=== PATIENT | male | born 1960 | race Caucasian/White ===

== ENCOUNTER → 2018-10-06 | Outpatient (CLI) | payer MEDICAID, MEDICARE ==
[~2018-10-06] MED LIST: RT-ALBUTEROL SULF 2.5 MG/3 ML PRE-MIX VIAL INH ONE
== END ==
LOC: RT 12:39
PROVIDERS: ATTEND Family Medicine
DX: J44.9 Chronic obstructive pulmonary disease, unspecified (principal)
CPT/HCPCS: 94060; 94726; 94729

== ENCOUNTER → 2018-12-03 | Outpatient (CLI) | payer MEDICARE, OTHER ==
--- NOTE | 2018-12-03 13:07 | Diagnostic Imaging Report ---
EXAM: CT CHEST SCREENING WO INDICATION: [id number] smoking history. Quit smoking 2 years ago. COMPARISON: None. FINDINGS: There are a couple calcified granulomas bilaterally. No suspicious pulmonary nodule or mass. No endobronchial lesions. No pleural effusion or pneumothorax. No mediastinal, hilar or axillary lymphadenopathy. Normal heart size. No pericardial effusion. Normal caliber thoracic aorta and main pulmonary arteries. No acute osseous findings. IMPRESSION: No suspicious pulmonary nodule or mass. No acute CT findings in the chest. Recommend continue annual screening with low-dose chest CT in 12 months. Lung rads category: 1. Modifier: None. Please note that the low-dose technique of this chest CT is of non-diagnostic quality. This study is only intended for lung cancer screening of high risk patients. Dictated by: Dictated on workstation # [id number]
== END ==
LOC: RAD 11:24
PROVIDERS: ATTEND Family Medicine
DX: Z12.2 Encounter for screening for malignant neoplasm of respiratory organs (principal); Z87.891 Personal history of nicotine dependence

== ENCOUNTER → 2018-12-20 | Outpatient (CLI) | payer MEDICARE ==
--- NOTE | 2018-12-20 13:56 | Diagnostic Imaging Report ---
PATIENT HISTORY: LEFT KNEE PAIN. TECHNIQUE: Three views of the left knee. COMPARISON: None. FINDINGS: No acute fracture or dislocation is seen in the left knee. Alignment appears normal. Joint spaces are preserved. There is a small left knee joint effusion. IMPRESSION: Small left knee joint effusion with no acute osseous abnormalities seen. Dictated by: Dictated on workstation # [id number]
== END ==
LOC: RAD FS 13:00
PROVIDERS: ATTEND Nurse Practitioner Family
DX: M25.462 Effusion, left knee (principal)
CPT/HCPCS: 73562

== ENCOUNTER → 2019-02-26 | Outpatient (CLI) | payer MEDICARE, OTHER ==
--- NOTE | 2019-02-26 16:21 | Diagnostic Imaging Report ---
PROCEDURE: US left lower extremity venous. TECHNIQUE: Multiple real-time grayscale images were obtained over the left lower extremity in various projections. Additional duplex Doppler and color Doppler images were also obtained. INDICATION: Left knee swelling. FINDINGS: There is no evidence of a left lower extremity DVT. Left lower extremity deep venous system shows normal compressibility with normal response to augmentation and Valsalva. No fluid collection or mass is seen. IMPRESSION: No evidence of left lower extremity DVT. Dictated by: Dictated on workstation # [id number]
== END ==
LOC: RAD 14:39
PROVIDERS: ATTEND Nurse Practitioner
DX: M79.662 Pain in left lower leg (principal); M25.462 Effusion, left knee

== ENCOUNTER 2019-04-21 12:29 | Outpatient (CLI) | payer MEDICARE ==
[~2019-04-21] VITALS: Ht 175.3 cm; Wt 130.0 kg
[2019-04-21 12:40] VITALS: BP 129/91
[2019-04-21] MEDS ORDERED: ASPI-586 PO (13:16)
[2019-04-21] MEDS ORDERED: FLUT1DIS27 IH (13:16)
[2019-04-21] MEDS ORDERED: ALB0.5V INH (13:16)
[2019-04-21] MEDS ORDERED: MULT-1104 PO (13:16)
[2019-04-21] MEDS ORDERED: OMG1KC PO (13:16)
[2019-04-21] MEDS ORDERED: RT-ALBUINH INH (13:16)
[2019-04-21] MEDS ORDERED: FLUT9.9S NS (13:16)
== END 2019-04-21 13:05 | disposition home or self-care (01) ==
LOC: PREOP 12:29
PROVIDERS: ATTEND Orthopaedic Surgery
DX: Z01.818 Encounter for other preprocedural examination (principal)
CPT/HCPCS: 87081

== ENCOUNTER 2019-04-29 09:00 | Day surgery (SDC) | payer MEDICARE ==
--- NOTE | 2019-04-20 09:17 | HISTORY AND PHYSICAL ---
DATE OF SERVICE: ADMISSION HISTORY AND PHYSICAL DATE OF ADMISSION: 04/29/2019. This will be for outpatient surgery on 04/29/2019 for left knee arthroscopy. HISTORY OF PRESENT ILLNESS: The patient is a 58-year-old disabled gentleman with complaints of left medial knee pain, catching, locking and swelling. An MRI revealed a posterior horn medial meniscus tear as well as chondral changes of his medial and lateral compartments. He reports that he has had activity limitations because of the knee and due to progressive symptoms and failure to improve with the conservative measures, the patient has elected to proceed with surgical intervention. REVIEW OF SYSTEMS: No chest pain, no shortness of breath and no dysuria. PAST MEDICAL HISTORY: Allergic rhinitis, COPD, diabetes mellitus, hypertension, umbilical hernia and emphysema. PAST SURGICAL HISTORY: Cholecystectomy. FAMILY HISTORY: Noncontributory. PRIMARY CARE PROVIDER: Dr. Morton. MEDICATIONS: Fluticasone, albuterol, Advair, sildenafil, prednisone, omeprazole, nitroglycerin, montelukast, lisinopril, levalbuterol and ketoconazole. ALLERGIES: No known drug allergies. SOCIAL HISTORY: The patient denies alcohol, tobacco use. PHYSICAL EXAMINATION: GENERAL: The patient is well developed, well nourished, in no acute distress. HEENT: Normocephalic and atraumatic. Pupils are equal, round, reactive to light. Oropharynx is clear. NECK: Supple, no lymphadenopathy. LUNGS: Clear to auscultation bilaterally. HEART: Regular rate and rhythm. ABDOMEN: Soft, nontender and nondistended. EXTREMITIES: The left knee demonstrates moderate effusion. He is tender along his medial joint line to palpation. He has pain with Jordan's medially. No varus valgus laxity. Negative anterior and posterior drawer. Negative straight leg raise. Range of motion is 0/0/135. 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 PLAN: Left knee arthroscopy with chondroplasty, partial medial meniscectomy. The risks, benefits, options, ramifications and recovery have been discussed at length with the patient. He understands and wishes to proceed. Job ID: [id number] DocumentID: [id number] Dictated Date: 04/17/2019 09:45:43 Center Administrator Date: 04/17/2019 10:22:50 Dictated By: NEYDA DESHPANDE MD
[2019-04-29] VITALS (10 sets, daily range): BP systolic 124–145; BP diastolic 79–91
[~2019-04-29] VITALS: Ht 175.3 cm; Wt 130.0 kg
[~2019-04-29 09:00] MED LIST changes: +ALB0.5V INH; +ASPI-586 PO; +FLUT1DIS27 IH; +FLUT9.9S NS; +HYDROcodone/APAP 7.5 MG/325 MG (LORTAB, LORCET PLUS) TABLET PO PRN; +MULT-1104 PO; +OMG1KC PO; +RT-ALBUINH INH; -RT-ALBUTEROL SULF 2.5 MG/3 ML PRE-MIX VIAL INH ONE
[2019-04-29] MEDS ORDERED: ceFAZolin INJECTION 1,000 MG in WATER (STERILE) FOR INJECTION 10 ML IV ONE (09:15)
--- NOTE | 2019-04-29 09:19 | Progress Note-Pre Operative ---
Pre-Operative Progress Note H&P Reviewed The H&P was reviewed, patient examined and no changes noted. Date Seen by Provider: Apr 29, 2019 Time Seen by Provider: 09:19 Date H&P Reviewed: Apr 29, 2019 Time H&P Reviewed: 09:19 Pre-Operative Diagnosis: left knee medial meniscus tear and chondromalacia NEYDA DESHPANDE MD Apr 29, 2019 09:19 POS
--- NOTE | 2019-04-29 09:21 | Progress Note-Post Operative ---
Post-Operative Progess Note Surgeon (s)/Sizing Sponger (s) Surgeon NEYDA DESHPANDE MD Sizing Sponger: Barry Sparks Pre-Operative Diagnosis left knee medial meniscus tear and chondromalacia Post-Operative Diagnosis left knee medial meniscus tear and chondromalacia of the medial and lateral femoral condyles and patella Procedure & Operative Findings Date of Procedure 04/29/19 Procedure Performed/Findings left knee arthroscopic partial medial meniscectomy and chondroplasty of the medi al and lateral femoral condyles and patella Anesthesia Type GETA Estimated Blood Loss Estimated blood loss (mL): minimal Specimens/Packing Specimens Removed none Packing: none NEYDA DESHPANDE MD Apr 29, 2019 09:21 POS
[2019-04-29] MEDS ORDERED: CATHETER FLUSH 10 ML SYR IV PRN (09:30)
[2019-04-29] MEDS: LACTATED RINGERS 1,000 ML IV PRN ×3 (09:30→11:57)
[2019-04-29] MEDS ORDERED: morphine PF (DURAMORPH) 10 MG/10 ML AMP ONE (09:53)
[2019-04-29] MEDS ORDERED: BUPIVACAINE 0.25% 30 ML (SENSORCAINE) VIAL ONE (09:54)
[2019-04-29] MEDS ORDERED: fentaNYL INJECTION 100 MCG/2 ML AMP ONE (10:02)
[2019-04-29] MEDS ORDERED: MIDAZOLAM 2 MG/2 ML (VERSED) VIAL ONE (10:03)
[2019-04-29] MEDS ORDERED: ONDANSETRON 4 MG/2 ML (SDV) Z0FRAN ONE (10:08)
[2019-04-29] MEDS ORDERED: DEXAMETHASONE 10 MG/ML (DECADRON) 1 ML VIAL ONE (10:08)
[2019-04-29] MEDS ORDERED: SEVOFLURANE (ULTANE) 15 ML INHAL SOLN ONE ×3 (10:08→11:43)
[2019-04-29] MEDS ORDERED: LIDOCAINE PF 2% 5 ML (XYLOCAINE) VIAL ONE (10:09)
[2019-04-29] MEDS ORDERED: proPOfol 200 MG/20 ML (DIPRIVAN) VIAL IV ONE ×2 (10:09→11:25)
[2019-04-29] MEDS ORDERED: morphine INJ 10 MG/ML 1ML (SYR OR VIAL) IVP ONE (11:45)
[2019-04-29] MEDS ORDERED: ONDANSETRON 4 MG/2 ML (SDV) Z0FRAN IVP PRN (11:45)
[2019-04-29] MEDS ORDERED: MEPERIDINE (DEMEROL) INJ 50 MG/ML IVP ONE (11:45)
[2019-04-29] MEDS ORDERED: fentaNYL INJECTION 100 MCG/2 ML AMP IVP ONE (11:45)
--- NOTE | 2019-04-29 12:10 | Anesthesia-General Post-Op ---
General Patient Condition Mental Status/LOC: Same as Preop Cardiovascular: Satisfactory Nausea/Vomiting: Absent Respiratory: Satisfactory Pain: Controlled Complications: Absent Post Op Complications Complications None Follow Up Care/Instructions Patient Instructions None needed. Anesthesia/Patient Condition Patient Condition Patient is doing well, no complaints, stable vital signs, no apparent adverse anesthesia problems. No complications reported per nursing. SALUD JORDAN CRNA Apr 29, 2019 12:10 POS
[2019-04-29] MEDS ORDERED: HYDR-3816 PO (13:06)
--- NOTE | 2019-04-29 13:20 | Physical Therapy Ortho Eval ---
PT Orthopedic Evaluation Type of Surgery Knee Scope WBAT LLE Prior Level of Function Current Living Status: Spouse Locomotion (Upon Admit): Straight Cane Established Durable Medical Eq: Straight Cane, Crutches Subjective Subjective Patient sitting EOB pre tx, agrees to PT, has 5/10 pain in left knee, no complaints of numbness. Patient states he has to use the restroom very badly and wants to ambulate to it. Entry Into Home: Stairs Without Railing Steps Into Home: 2 Motor Control Motor Control: Motor Control WNL ROM left knee extension +5 degrees, flexion 90 degrees Transfer Transfers (B, C, W/C) (FIM): 4 (CGA) Gait Gait (FIM): 4 Distance: 150' Gait Level of Assist: 4 Summary/Comments Patient ambulated 150' with a single point cane with CGA and went up and down 1 step using a SPC with CGA. Patient needs cues for foot placement on stair and ambulates antalgicly and has s limp due to decreased stance time on the left side. Treatment Rendered Treatment: Therapeutic Exercises, Gait Train, Step Train Exercise Instruction: Quad Sets, Heel Slides, Ankle Pumps Assessment/Goals Understands HEP: Yes Safe Ambulation: Yes Plan Treatment Plan: Discharge PT/Family Agrees to Plan: Yes Time Time In: 1305 Time Out: 1320 Total Billed Treatment Time: 15 Billed Treatment Time 1 visit TANIKA VANEGAS PT Apr 29, 2019 13:20 POS
--- NOTE | 2019-04-29 15:57 | OPERATIVE REPORT ---
DATE OF SERVICE: 04/29/2019 PREOPERATIVE DIAGNOSES: 1. Left knee medial meniscus tear. 2. Left knee chondromalacia of the medial femoral condyle. 3. Left knee chondromalacia of the patella. POSTOPERATIVE DIAGNOSES: 1. Left knee medial meniscus tear. 2. Left knee chondromalacia of the medial femoral condyle. 3. Left knee chondromalacia of the patella. 4. Left knee chondromalacia of the lateral femoral condyle PROCEDURES: 1. Left knee arthroscopic partial medial meniscectomy. 2. Left knee arthroscopic chondroplasty of the medial femoral condyle. 3. Left knee arthroscopic chondroplasty of the patella. 4. Left knee arthroscopic chondroplasty of the lateral femoral condyle. SURGEON: Orion Deshpande MD MEDICARE COMPLIANCE AUDITOR: Barry Sparks, who assisted throughout the procedure and closed the incisions. ANESTHESIA: General endotracheal by Barry Salvador CRNA. TOURNIQUET TIME: Not applicable. ESTIMATED BLOOD LOSS: Minimal. DRAINS: None. COMPLICATIONS: None. POSTOPERATIVE PLAN: Routine arthroscopy protocol. The patient was then transferred to recovery room awake and in stable condition. STATEMENT OF MEDICAL NECESSITY: The patient is a 58-year-old gentleman with complaints of left knee pain, catching, locking and swelling. An MRI revealed a complex tear of the medial meniscus as well as chondral changes of his medial and patellofemoral compartments. Due to functional impairment and failure to improve with conservative measures, the patient elected to proceed with surgical intervention. Examination under anesthesia revealed range of motion of 0/0/130 with negative Kaylie, negative anterior and posterior drawer. No varus or valgus laxity and pivot shift. Arthroscopic findings of patella demonstrated grade II chondral flaps inferiorly in a 10 x 10 area. Trochlea demonstrated no gross chondral abnormalities. Medial and lateral gutters were clear. ACL and PCL were intact. Lateral compartment demonstrated grade III chondral flap over the anterior aspect of the femoral condyle in a 10 x 10 area. The medial compartment demonstrated a complex tear of the posterior horn and body of medial meniscus involving approximately one-half of the posterior horn and body. In addition, there was grade IV chondral loss in central portion of femoral condyle in an 8 x 8 area with surrounding grade III chondral flaps at the periphery. PROCEDURE IN DETAIL: After risks and benefits of procedure were discussed and questions were answered and informed consent was accomplished on chart, the operative site was confirmed in the preoperative holding area initialed by the surgeon. The patient was then transferred to the operating room. After adequate levels of general endotracheal anesthetic were obtained, a timeout was called and the left lower extremity was prepped and draped in the usual sterile fashion. Knee joint was injected with 60 mL of fluid and standard inferolateral portal was placed with the arthroscope. Under direct visualization, inferior medial portal was created. The menisci and cruciates carefully probed with the above findings noted. The unstable chondral flaps on the patella were debrided with shaver back to a stable edge. Scope was then redirected into the lateral compartment and several chondral flaps in lateral femoral condyle were debrided with shaver back to a stable edge. Scope was redirected into the medial compartment where the unstable chondral flaps of the medial femoral condyle were debrided with shaver back to a stable edge and the posterior horn and body of the medial meniscus were debrided with a biter and shaver back to a stable edge. This was carefully probed with no further tearing or instability noted. The knee was copiously irrigated and port sites were closed with 4-0 nylon in simple interrupted fashion. Knee was injected with Duramorph. Portal sites were infiltrated with plain Marcaine and soft dressing was applied. The patient was transferred to recovery room awake and in stable condition. Job ID: [id number] DocumentID: [id number] Dictated Date: 04/29/2019 11:43:12 Home Demonstration Agent Date: 04/29/2019 15:56:03 Dictated By: ORION DESHPANDE MD
== END 2019-04-29 13:45 | disposition home or self-care (01) ==
LOC: SDC 09:00
PROVIDERS: ATTEND Orthopaedic Surgery
DX: S83.232A Complex tear of medial meniscus, current injury, left knee, initial encounter (principal); M94.262 Chondromalacia, left knee; G47.33 Obstructive sleep apnea (adult) (pediatric); J30.9 Allergic rhinitis, unspecified; J44.9 Chronic obstructive pulmonary disease, unspecified; E11.9 Type 2 diabetes mellitus without complications; I10 Essential (primary) hypertension; E66.01 Morbid (severe) obesity due to excess calories; Z68.41 Body mass index [BMI] 40.0-44.9, adult; Z90.49 Acquired absence of other specified parts of digestive tract; Z99.89 Dependence on other enabling machines and devices; Z87.891 Personal history of nicotine dependence; Z79.891 Long term (current) use of opiate analgesic; Z79.82 Long term (current) use of aspirin

== ENCOUNTER → 2020-07-26 | Outpatient (CLI) | payer MEDICARE ==
[~2020-07-26] MED LIST changes: +HYDR-34 PO; -HYDROcodone/APAP 7.5 MG/325 MG (LORTAB, LORCET PLUS) TABLET PO PRN
--- NOTE | 2020-07-26 14:54 | Diagnostic Imaging Report ---
EXAMINATION: CT Chest without contrast (lung screening). TECHNIQUE: Multiple contiguous axial images were obtained through the chest without the use of intravenous contrast according to lung cancer screening protocol. All CT scans use one or more of the following dose optimizing techniques: automated exposure control, MA and/or KvP adjustment based on a patient size and exam type, or iterative reconstruction. HISTORY: 74 pack year history of smoking. COMPARISON: CT chest screening 12/03/2018. FINDINGS: Thyroid: The thyroid is normal. Mediastinum: Heart size is normal without significant pericardial effusion. The aorta is normal in caliber. No suspicious lymphadenopathy. Lungs and airways: The lungs are clear without consolidation, pleural effusion, or pneumothorax. No suspicious pulmonary nodule. The airways are normal. Upper abdomen: Decreased attenuation of the liver which can be seen with hepatic steatosis. Musculoskeletal: Degenerative changes of the spine without suspicious osseous lesion or compression fracture. Chronic left rib fractures. IMPRESSION: 1. No suspicious pulmonary nodules. Recommend continued annual low-dose CT screening. LUNG-RADS CATEGORY: 1 MODIFIER: None. Dictated by: Dictated on workstation # [id number]
== END ==
LOC: RAD 13:57
PROVIDERS: ATTEND Nurse Practitioner Family
DX: J44.9 Chronic obstructive pulmonary disease, unspecified (principal); Z87.891 Personal history of nicotine dependence
CPT/HCPCS: 71271

== ENCOUNTER 2020-09-01 11:30 | Outpatient (RCR) | payer MEDICARE | END 2020-11-30 | disposition home or self-care (01) | LOC: CARD 11:30 | PROVIDERS: ATTEND Internal Medicine Cardiovascular Disease | DX: I25.10 Atherosclerotic heart disease of native coronary artery without angina pectoris (principal); J44.9 Chronic obstructive pulmonary disease, unspecified | CPT/HCPCS: 93225; 93226; 93306 ==

== ENCOUNTER → 2020-11-09 | Outpatient (CLI) | payer MEDICARE ==
[~2020-11-09] VITALS: Ht 175 cm; Wt 129.0 kg
[~2020-11-09] MED LIST changes: +CATHETER FLUSH 10 ML SYR IV PRN; +REGADENOSON 0.4 MG/5 ML SYR (LEXISCAN) IV ONE
[2020-11-09 13:04] VITALS: BP 151/81
--- NOTE | 2020-11-09 16:45 | Cardiology Stress Test Report ---
Stress Test Report Date of Procedure/Referring: Date of Procedure: Nov 09, 2020 PCP Kee Oconnor MD Admitting Physician Mary Morton MD Indications: CP Baseline Heart Rate: 98 Baseline Blood Pressure: Blood Pressure Systolic: 151 Blood Pressure Diastolic: 81 Baseline Vitals Vital Signs Date Time Temp Pulse Resp B/P (MAP) Pulse Ox O2 Delivery O2 Flow Rate FiO2 11/09/20 13:04 80 151/81 (104) 94 Baseline EKG: Baseline EKG: NSR Summary After explaining the procedure to the patient, he signed a consent and then brought to the stress nuclear laboratory. Patient received 0.4 mg Lexiscan for stress test, ECG, heart rate and blood pressure were monitored continuously. Resting and stress dose of radio tracer were injected, imaging was acquired and reviewed in short axis, horizontal long axis and vertical long axis views. TID: 1.02 SSS: 11 SDS: 3 EF: 53 1. Patient tolerated Lexiscan well 2. Diaphragmatic attenuation with decreased uptake involving the inferior wall and inferior apex which is fixed with no significant ischemia, probably secondary to diaphragmatic attenuation 3. Normal left ventricular size with normal contractility, EF 53% KEE OCONNOR MD Nov 09, 2020 16:45
== END ==
LOC: CARD 11-02 11:05
PROVIDERS: ATTEND Internal Medicine Cardiovascular Disease
DX: I25.10 Atherosclerotic heart disease of native coronary artery without angina pectoris (principal); J44.9 Chronic obstructive pulmonary disease, unspecified
CPT/HCPCS: 78452; 93017; A9502

== ENCOUNTER 2021-01-18 09:43 | Outpatient (CLI) | payer MEDICARE ==
[~2021-01-18] VITALS: Ht 175.3 cm; Wt 133.1 kg
[~2021-01-18 09:43] MED LIST changes: -CATHETER FLUSH 10 ML SYR IV PRN; -REGADENOSON 0.4 MG/5 ML SYR (LEXISCAN) IV ONE
[2021-01-18 10:37] VITALS: BP 154/81
[2021-01-18 10:58] LABS: BILIRUBIN,URINE NEGATIVE (NEGATIVE); CLARITY,URINE CLEAR; COLOR,URINE YELLOW; GLUCOSE, URINE (UA) NEGATIVE (NEGATIVE); KETONES,URINE NEGATIVE (NEGATIVE); LEUKOCYTE ESTERASE ,URINE 1+ (NEGATIVE); NITRITE,URINE NEGATIVE (NEGATIVE); PROTEIN,URINE NEGATIVE (NEGATIVE)
[2021-01-18 11:04] LABS: BASOPHILS # (AUTO) 0.1 10^3/uL (0.0-0.1); BASOPHILS % (AUTO) 1 % (0-10); EOSINOPHILS # (AUTO) 0.3 10^3/uL (0.0-0.3); EOSINOPHILS % (AUTO) 4 % (0-10); HEMATOCRIT 43 % (40-54); HEMOGLOBIN 13.8 g/dL (13.3-17.7); LYMPHOCYTES # (AUTO) 2.2 10^3/uL (1.0-4.0); LYMPHOCYTES % (AUTO) 25 % (12-44); MEAN CORPUSCULAR HEMOGLOBIN 31 pg (25-34); MEAN CORPUSCULAR HGB CONC 32 g/dL (32-36); MEAN CORPUSCULAR VOLUME 96 fL (80-99); MEAN PLATELET VOLUME 10.4 fL (9.0-12.2); MONOCYTES # (AUTO) 0.6 10^3/uL (0.0-1.0); MONOCYTES % (AUTO) 7 % (0-12); NEUTROPHILS # (AUTO) 5.5 10^3/uL (1.8-7.8); NEUTROPHILS % (AUTO) 63 % (42-75); PLATELET COUNT 239 10^3/uL (130-400); WHITE BLOOD COUNT 8.6 10^3/uL (4.3-11.0)
[2021-01-18 11:13] LABS: PROTHROMBIN TIME PATIENT 13.6 SEC (12.2-14.7)
--- NOTE | 2021-01-18 11:13 | Diagnostic Imaging Report ---
INDICATION: Preop for knee surgery. TIME OF EXAM: 11:03 AM. COMPARISON: No prior studies are available for comparison. FINDINGS: The heart appears to be mildly enlarged. The lungs are clear. No infiltrates are seen. There is no effusion or pneumothorax. IMPRESSION: No acute cardiopulmonary process is detected. Dictated by: Dictated on workstation # [id number]
[2021-01-18 11:17] LABS: BACTERIA,URINE TRACE /HPF; SQUAMOUS EPITHELIAL CELL,UR 0-2 /HPF
[2021-01-18 11:18] LABS: CALCIUM OXALATE CRYSTALS,UR RARE /LPF
[2021-01-18 11:19] LABS: ALBUMIN 3.6 GM/DL (3.2-4.5); BILIRUBIN,TOTAL 0.5 MG/DL (0.1-1.0); CALCIUM 9.2 MG/DL (8.5-10.1); CREATININE SERUM 0.7 MG/DL (0.60-1.30); POTASSIUM 4.1 MMOL/L (3.6-5.0); TOTAL PROTEIN 7.2 GM/DL (6.4-8.2)
[2021-01-18] MEDS ORDERED: ASPI-999 PO (13:23)
[2021-01-18] MEDS ORDERED: PSYL0.5211 PO (13:23)
[2021-01-18] MEDS ORDERED: GABA-486 PO (13:23)
[2021-01-18] MEDS ORDERED: LEVA0.6334 IH (13:23)
[2021-01-18] MEDS ORDERED: LACT1CAP91 PO (13:23)
[2021-01-18] MEDS ORDERED: BUDE10.2 IH (13:23)
[2021-01-18] MEDS ORDERED: TIOT18CA2 IH (13:23)
[2021-01-18] MEDS ORDERED: RT-ALBUINH IH (13:23)
[2021-01-18] MEDS ORDERED: VITA15LO2 PO (13:23)
[2021-01-18] MEDS ORDERED: ASCO-262 PO (13:23)
[2021-01-18 13:31] LABS: ERYTHROCYTE SEDIMENTATION RATE 45 MM/HR (0-30)
== END 2021-01-18 11:15 | disposition home or self-care (01) ==
LOC: PREOP 09:43
PROVIDERS: ATTEND Orthopaedic Surgery
DX: Z01.818 Encounter for other preprocedural examination (principal); M17.12 Unilateral primary osteoarthritis, left knee
CPT/HCPCS: 36415; 71046; 80053; 81000; 85025; 85610; 85652; 86850; 86900; 86901; 87081; 87088

== ENCOUNTER 2021-01-25 07:40 | Inpatient (IN) | payer MEDICARE ==
--- NOTE | 2021-01-19 06:11 | HISTORY AND PHYSICAL ---
DATE OF SERVICE: ADMISSION HISTORY AND PHYSICAL DATE OF ADMISSION: 01/25/2021 Date of admission, date of service and date of surgery will be 01/25/2021 for left total knee arthroplasty. The patient will require regular inpatient admission due to pain management, need for physical therapy, gait abnormalities and comorbidities. HISTORY OF PRESENT ILLNESS: The patient is a 60-year-old gentleman with complaints of progressively worsening left knee pain. He has undergone treatment with injections as well as arthroscopy. He reports progressive loss of function and continued pain. He reports this has progressed to the point where it is interfering with his activities of daily living. Radiographs reveal severe medial compartment osteoarthritis and due to functional impairment and failure to improve with conservative measures, the patient elected to proceed with surgical intervention. REVIEW OF SYSTEMS: No chest pain, no shortness of breath, no dysuria. PAST MEDICAL HISTORY: Allergic rhinitis, COPD, diabetes type 2, hypertension, umbilical hernia, pain in lobular emphysema. PAST SURGICAL HISTORY: Cholecystectomy, left knee arthroscopy. FAMILY HISTORY: Noncontributory. PRIMARY CARE PROVIDER: Kat Chávez. MEDICATIONS: Steroid inhaler, albuterol, Advair, sildenafil, prednisone, omeprazole, nitroglycerin, lisinopril, ketaconazole, Keflex, hydrocodone. ALLERGIES: No known drug allergies. SOCIAL HISTORY: The patient denies alcohol use. He is a former smoker. PHYSICAL EXAMINATION: GENERAL: The patient is well-developed, well-nourished, in no acute distress. HEENT: Normocephalic, atraumatic. Pupils are equal, round and reactive to light. Oropharynx is clear. NECK: Supple, with no lymphadenopathy. LUNGS: Clear to auscultation bilaterally. HEART: Regular rate and rhythm. ABDOMEN: Soft, nontender, nondistended. EXTREMITIES: The patient ambulates with an antalgic gait. His left knee demonstrates varus alignment. He is markedly tender along his medial joint line. He has pain medially with Jordan. He has patellofemoral crepitus noted. He has a moderate effusion. Range of motion is 0/3/120. IMPRESSION: Severe left knee osteoarthritis, unresponsive to conservative measures. PLAN: Left total knee arthroplasty. The risks, benefits, options, ramifications and recovery have been discussed at length with the patient. He understands and wishes to proceed. Job ID: [id number] DocumentID: [id number] Dictated Date: 01/10/2021 13:01:36 [employer] Database Administrator Date: 01/10/2021 13:27:35 Dictated By: NEYDA DESHPANDE MD
[2021-01-25] VITALS (13 sets, daily range): BP systolic 113–184; BP diastolic 56–114
[~2021-01-25] VITALS: Ht 175.3 cm; Wt 133.1 kg
[~2021-01-25 07:40] MED LIST changes: +ASCO-262 PO; +ASPI-999 PO; +BUDE10.2 IH; +GABA-486 PO; +LACT1CAP91 PO; +LEVA0.6334 IH; +NALOXONE 0.4 MG/ML 1 ML (NARCAN) VIAL IV PRN; +ONDANSETRON 4 MG/2 ML (SDV) Z0FRAN IVP PRN; +PSYL0.5211 PO; +RT-ALBUINH IH; +TIOT18CA2 IH; +VITA15LO2 PO; +diphenhydrAMINE 50 MG/ML INJ (BENADRYL) IVP PRN; +morphine PCA 100 MG/100 ML BAG IV PRN
[2021-01-25] MEDS ORDERED: INTRA-ARTICULAR IU ONE ×5 (08:00)
[2021-01-25] MEDS: SENNA W/DOCUSATE (SENOKOT S) TABLET PO SCH ×2 (08:00→20:23)
[2021-01-25] MEDS ORDERED: ROPIVACAINE 5MG/ML 30ML VIAL ONE (08:13)
[2021-01-25] MEDS ORDERED: LIDOCAINE PF 2% 5 ML (XYLOCAINE) VIAL ONE (08:13)
[2021-01-25] MEDS ORDERED: MIDAZOLAM 2 MG/2 ML (VERSED) VIAL ONE (08:13)
[2021-01-25] MEDS: LACTATED RINGERS 1,000 ML IV PRN ×2 (08:15→10:10)
[2021-01-25] MEDS ORDERED: CEFUROXIME INJECTION 1,500 MG in WATER (STERILE) FOR INJECTION 15 ML IV ONE (08:15)
[2021-01-25] MEDS ORDERED: fentaNYL INJ 100 MCG/2 ML AMP ONE ×2 (08:33→09:55)
[2021-01-25] MEDS ORDERED: proPOfol 200 MG/20 ML (DIPRIVAN) VIAL IV ONE (08:33)
[2021-01-25] MEDS ORDERED: ONDANSETRON 4 MG/2 ML (SDV) Z0FRAN ONE (08:33)
--- NOTE | 2021-01-25 09:11 | Progress Note-Pre Operative ---
Pre-Operative Progress Note H&P Reviewed The H&P was reviewed, patient examined and no changes noted. Date Seen by Provider: Jan 25, 2021 Time Seen by Provider: 09:03 Date H&P Reviewed: Jan 25, 2021 Time H&P Reviewed: 07:11 Pre-Operative Diagnosis: left knee primary osteoarthritis NEYDA DESHPANDE MD Jan 25, 2021 09:11
--- NOTE | 2021-01-25 09:13 | Progress Note-Post Operative ---
Post-Operative Progess Note Surgeon (s)/Certified Massage Therapist (s) Surgeon NEYDA DESHPANDE MD Certified Massage Therapist: Barry Sparks Pre-Operative Diagnosis left knee primary osteoarthritis Post-Operative Diagnosis left knee primary osteoarthritis Procedure & Operative Findings Date of Procedure 01/25/21 Procedure Performed/Findings left total knee arthroplasty Anesthesia Type GETA Estimated Blood Loss Estimated blood loss (mL): minimal Specimens/Packing Specimens Removed none Packing: none NEYDA DESHPANDE MD Jan 25, 2021 09:13
--- NOTE | 2021-01-25 09:16 | D/C HH Face to Face Order ---
D/C Face to Face Orders Reconcile Patient Problems Problems Reviewed?: Yes Instructions for Patient Via [facility], Patient Instructions/FollowUp: three weeks Physician to follow Patient: three weeks Discharge Diet for Home: Regular Diet Patient Data-Allergies,Ht & Wt Patient Allergies: Coded Allergies: No Known Drug Allergies (Unverified , 10/06/18) Home Health Need/Face to Face Date of Face to Face: Jan 25, 2021 Clinical Findings: Instability, Muscle weakness, Pain with ambulation, Unsteady gait I have seen Pt [id number]: Yes Discharged To: Home Diagnosis/Conditions: left total knee arthroplasty Patient is Homebound due to: Dave fall risk due to instabilty, Muscle weakness, Pain w/ambulation Homebound Status Due to the above stated illness, injury or surgical procedure (medical condition or diagnosis) and associated clinical findings, the patient is homebound because of his/her inability to leave home except with aid of a supportive device and/or person AND leaving the home requires a considerable and taxing effort or is medically contraindicated. Pt req the following assistanc: [facility] Nursing Orders Home Health Services Order: Physical Therapy-Evaluate & Treat DC Left knee meng and apply steri strips 02/08/21 Home Health Infusion Therapy Line Start Date: Jan 25, 2021 Therapy Orders Therapy Orders: Physical Therapy, PT to assess for OT Therapy Specific Orders: Eval assistive deivces, Teach enviro modifications/safety, Gait training, Increase strength/endurance, Provider maintenance therapy, Restore ROM Certify Stmt I certify that this patient is under my care and that I, a nurse practitioner or a physician; a day care assistant working with me, had a face to face encounter that - meets the physician face to face encounter requirements with this patient as dated. NEYDA DESHPANDE MD Jan 25, 2021 09:16
[2021-01-25] MEDS ORDERED: ESMOLOL 100 MG/10 ML (BREVIBLOC) VIAL ONE (09:55)
[2021-01-25] MEDS ORDERED: ROCURONIUM 10 MG/ML 5 ML SYRINGE IV ONE (10:24)
[2021-01-25] MEDS ORDERED: meTOprolol 5 MG/5 ML (LOPRESSOR) VIAL ONE (10:47)
[2021-01-25] MEDS ORDERED: HYDROmorphone 2 MG/ML VIAL (DILAUDID) IV ONE (11:00)
[2021-01-25] MEDS ORDERED: morphine INJ 10 MG/ML 1ML (SYR OR VIAL) IVP ONE (11:00)
[2021-01-25] MEDS ORDERED: ONDANSETRON 4 MG/2 ML (SDV) Z0FRAN IVP PRN (11:00)
[2021-01-25] MEDS ORDERED: PROMETHAZINE INJ 25 MG/ML (PHENERGAN) AMP IVP ONE (11:00)
[2021-01-25] MEDS ORDERED: MEPERIDINE (DEMEROL) INJ 50 MG/ML IVP ONE (11:00)
[2021-01-25] MEDS ORDERED: morphine INJ 10 MG/ML 1ML (SYR OR VIAL) ONE (11:01)
[2021-01-25] MEDS ORDERED: SEVOFLURANE (ULTANE) 15 ML INHAL SOLN ONE (11:03)
--- NOTE | 2021-01-25 11:49 | OPERATIVE REPORT ---
DATE OF SERVICE: 01/25/2021 PREOPERATIVE DIAGNOSIS: Left knee primary osteoarthritis. POSTOPERATIVE DIAGNOSIS: Left knee primary osteoarthritis. PROCEDURE: Left total knee arthroplasty. SURGEON: Orion Monterroso MD TARE WEIGHER: Barry Sparks, who assisted throughout the procedure and closed the incision. ANESTHESIA: General endotracheal by Madhu Steen CRNA. TOURNIQUET TIME: Approximately 65 minutes at 300 mmHg. ESTIMATED BLOOD LOSS: Minimal. DRAINS: None. COMPLICATIONS: None. POSTOPERATIVE PLAN: Routine protocol. The patient was transferred to the recovery room awake and in stable condition. MATERIALS: MicroPort cemented size 4 femur, cemented size 4 tibia with 10 mm insert and cemented size 32 patellar button. STATEMENT OF MEDICAL NECESSITY: The patient is a 60-year-old gentleman with longstanding progressive left knee pain. Radiographs revealed severe medial and patellofemoral arthrosis. He has undergone treatment with injections, anti-inflammatories, rest and arthroscopy without relief. Due to functional impairment and failure to improve with conservative measures, the patient elected to proceed with surgical intervention. DESCRIPTION OF PROCEDURE: After risks and benefits of procedure were discussed and questions were answered, informed consent signed and placed on chart, the operative site was confirmed in the preoperative holding area initialed by the surgeon. The patient was then transferred to the operating room and after adequate levels of general endotracheal anesthetic were obtained, a timeout was called, confirming the operative site. The left lower extremity was prepped and draped in the usual sterile fashion with the leg elevated and knee flexed. Tourniquet was inflated to 300 mmHg. Standard anterior approach was utilized. Hemostasis was obtained with cautery. Medial patellar arthrotomy was performed leaving 1 cm cuff on the patella for later reattachment. A portion of the fat pad was resected and subperiosteal release was performed in the proximal medial tibia. The ACL was resected. Intramedullary guide was passed into the femur and the distal cutting block was placed. Distal cut was made. Femur sized to a size 4. The 4 cutting block was placed parallel to the epicondylar axis and cuts were made from posterior to anterior. Subperiosteal release was then carefully performed on both posterior distal femur, being careful to stay on the bony surface. Intramedullary guide was then passed into the tibia. The drop chucho transected the mid intermalleolar axis from the cutting block the cut was made, the tibia sized to a size 4. The 4 baseplate was placed and then prepared with the drill and keel punch, the femoral trial was placed and trochlear cut was made. A 10 mm insert was placed. The patella was then prepared by using the freehand technique and resecting 10 mm off the undersurface of the patella. The peg guide was placed and peg holes were drilled. The 32 trial was placed. Full extension was easily obtained 120 degrees of flexion with gravity was easily obtained. There was no anterior/posterior or medial/lateral laxity in flexion or extension. The patella tracked well. The trials were removed. The joint was irrigated with pulse lavage. A periarticular block was placed in the posterior capsule, medial and lateral retinaculum, extensor mechanism, and subcutaneous tissues. The bone ends were irrigated and dried and the tibial baseplate was cemented into position. Excessive cement was removed, the superior surface was irrigated and dried. The polyethylene insert was placed. Distal femur was irrigated and dried and the femoral prosthesis was cemented into position. Excessive cement was removed. The knee was brought out in full extension until the cement had cured. The undersurface of the patella was irrigated and dried. The patellar button was cemented into position. Excessive cement was removed. Once the cement had cured, the knee was taken through range of motion. Full extension was easily obtained 120 degrees of flexion with gravity was easily obtained. There was no anterior/posterior or medial/lateral laxity in flexion or extension. The joint was further irrigated with pulse lavage. The arthrotomy was closed with #2 Tevdek in nvlpbz-zq-qkyxy interrupted fashion. The knee was flexed. The patella tracked well with no new tension at the repair site. The subcutaneous tissues were irrigated and dried and a total of 6 liters of pulse lavage was used throughout the procedure. An 0 Vicryl was used to reapproximate subcutaneous tissue, 2-0 Vicryl for the superficial subcutaneous tissue, meng used on the skin. A soft dressing was applied. The tourniquet was deflated. The patient was transferred to the recovery room awake and in stable condition. Job ID: [id number] DocumentID: [id number] Dictated Date: 01/25/2021 10:56:46 Non Cdl Driver Date: 01/25/2021 11:49:08 Dictated By: ORION MONTERROSO MD
--- NOTE | 2021-01-25 11:55 | Progress Note ---
Standard Progress Note Progress Notes/Assess & Plan Date Seen by a Provider: Jan 25, 2021 Time Seen by a Provider: 11:15 Progress/Assessment & Plan no complaints radiographs--HW well positioned without fracture LLE--2 plus DP pulse with brisk cap refill, Intact DF and PF of toes and ankle. sensation intact to light touch throughout s/p LTKA mobilize as able NEYDA DESHPANDE MD Jan 25, 2021 11:55
--- NOTE | 2021-01-25 12:21 | Diagnostic Imaging Report ---
INDICATION: Postoperative. TECHNIQUE: 2 post operative radiographs of the left knee CORRELATION STUDY: None FINDINGS: There are postsurgical changes of a total knee arthroplasty. Alignment is anatomic. Installed hardware appearing unremarkable. Resurfacing posterior patella. Overlying soft tissue gas collections and skin meng are present. IMPRESSION: Postsurgical changes of a total left knee replacement. Dictated by: Dictated on workstation # [id number]
[2021-01-25] MEDS: NS IV 1000 ML 1,000 ML IV SCH ×2 (13:38→19:45)
--- NOTE | 2021-01-25 14:11 | Physical Therapy Evaluation ---
PT Evaluation-General Medical Diagnosis Admission Date Jan 25, 2021 at 07:40 Medical Diagnosis: Left Knee Pain, left total knee arthroplasty. Onset Date: Jan 25, 2021 Therapy Diagnosis Therapy Diagnosis: Gait deficit, strength deficit Precautions Precautions/Isolations: Fall Prevention, Standard Precautions Weight Bear Status Left Lower Extremity: Left Weight Bearing/Tolerated Referral Physician: Dr. Monterroso Reason for Referral: Evaluation/Treatment Social History Home: Single Level Current Living Status: Significant Other Entry Into Home: Stairs With Railing PT Steps Into Home: 1 PT Steps Inside Home: 0 Other Obstacles: Patient and report they have an upstairs, but do not have to go there. Prior Prior Level of Function SCALE: Activities may be completed with or without assistive devices. 6-Fqxwwhhqoo-caseepv completes the activity by him/herself with no assistance from a helper. 5-Set-up or Clean-up Assistance-helper sets up or cleans up; patient completes activity. [place] assists only prior to or following the activity. 4-Supervision or Touching Assistance-helper provides verbal cues and/or touching/steadying and/or contact guard assistance as patient completes activity. Assistance may be provided throughout the activity or intermittently. 3-Partial/Moderate Assistance-helper does LESS THAN HALF the effort. [place] l ifts, holds or supports trunk or limbs, but provides less than half the effort. 2-Substantial/Maximal Assistance-helper does MORE THAN HALF the effort. [place] lifts or holds trunk or limbs and provides more than half the effort. 2-Fhlabhmij-qvdxfd does ALL the effort. Patient does none of the effort to complete the activity. Or, the assistance of 2 or more helpers is required for t he patient to complete the activity. If activity was not attempted, code reason: 7-Patient Refused. 9-Not Applicable-not attempted and the patient did not perform the activity before the current illness, exacerbation or injury. 10-Not Attempted due to Environmental Limitations-(lack of equipment, weather restraints, etc.). 88-Not Attempted due to Medical Conditions or Safety Concerns. Bed Mobility: 6 Transfers (B,C,W/C): 6 Gait: 6 Stairs: 6 Wheelchair Mobility: 9 Indoor Mobility (Ambulation): Independent Stairs: Independent Prior Devices Use: None PT Evaluation-Current Subjective Patient lying supine in bed upon PT arrival with in the room, agreeable to treatment. Patient rates pain currently at 4/10 in the back of his left knee. Objective Patient Orientation: Person, Place, Time, Situation ROM/Strength ROM Lower Extremities Right LE WNL's all planes Left LE knee extension 20 degrees from neutral Knee flexion 85 degrees Strength Lower Extremities Right LE 4/5 grossly Left LE 4/5 grossly except left knee flexion 3+/5, left knee extension 3+/5 Sensory Sensation Right Lower Extremit: Intact Sensation Left Lower Extremity: Intact Transfers Roll Left to Right (QC): 4 Sit to Lying (QC): 4 Lying to Sitting/Side of Bed(Q: 4 Sit to Stand (QC): 4 Chair/Ykl-fz-Iiblk Xfer(QC): 4 Toilet Transfer (QC): 4 Gait Does the Patient Walk?: Yes Mode of Locomotion: Walk Anticipated Mode of Locomotion: Walk Walk 10 feet (QC): 1 Walk 50 ft with 2 Turns(QC): 1 Walk 150 ft (QC): 1 Distance: 3 Gait Assistive Device: FWW Wheelchair Training Does the Pt Use a Wheelchair?: No Balance Sitting Static: Good Sitting Dynamic: Good Standing Static: Fair Standing Dynamic: Fair Assessment/Needs Patient lying supine in bed with left leg propped on a rolled bath blanket. Patient was advised against using anything to prop his left leg especially if it is just under his left knee. Patient demonstrates severe lack of left knee flexion at rest of ~ 20 degrees and moderate out-toeing of the left LE. Patient reports this was present before surgery. Patient was fit with CPM with settings at 0-90 degrees and speed at 4. Patient performs all observed bed mobility and transfers with min A and verbal cues. He demonstrates minimal impulsivity at times during transfers as he attempts to scoot forwards on the bed without control or safety awareness and attempts to stand before instructions and without any assist or use of devices. Patient performs bed to chair transfer with min A and verbal cues for safety and progression. Patient in chair post treatment with all needs met, nursing notified, call light in hand and in the room. Rehab Potential: Good PT Short Term Goals Short Term Goals Time Frame: Feb 01, 2021 Roll Left & Right: 5 Sit to lyin Lying to sitting on side of be: 5 Sit to stand: 5 Chair/zqz-tn-dekul transfer: 5 Toilet transfer: 5 Walk 10 feet: 5 Walk 50 feet with two turns: 5 Walk 150 feet: 5 1 step (curb): 4 4 steps: 4 12 steps: 4 PT Communications Technician Goals [facility] Goals PT Communications Technician Goals Time Frame: Feb 08, 2021 Roll Left & Right (QC): 6 Sit to Lying (QC): 6 Lying-Sitting on Side/Bed(QC): 6 Sit to Stand (QC): 6 Chair/Dgj-aq-Rmwyx Xfer(QC): 6 Toilet Transfer (QC): 6 Car Transfer (QC): 6 Walk 10 feet (QC): 6 Walk 50ft with 2 Turns (QC): 6 Walk 150 ft (QC): 6 1 Step (curb) (QC): 6 4 Steps (QC): 6 12 Steps (QC): 6 PT Plan Problem List Problem List: Activity Tolerance Treatment/Plan Treatment Plan: Continue Plan of Care Treatment Plan: Bed Mobility, Education, Functional Activity Jeet, Functional Strength, Group Therapy, Gait, Safety, Therapeutic Exercise, Transfers Treatment Duration: Mar 08, 2021 Frequency: 11 times per week Estimated Hrs Per Day: .5 hour per day Patient and/or Family Agrees t: Yes Safety Risks/Education Patient Education: Gait Training, Reviewed Precautions, Safety Issues Teaching Recipient: Patient, Family Teaching Methods: Demonstration Response to Teaching: Verbalize Understanding, Return Demonstration Time/GCodes Time In: 1315 Time Out: 1355 Total Billed Treatment Time: 40 Total Billed Treatment Visit, Juan De aL Rosa, Ex, CPM NOLAN ALVARADO PT Jan 25, 2021 14:11
[2021-01-25] MEDS: CEFUROXIME INJECTION 750 MG in WATER (STERILE) FOR INJECTION 10 ML IV SCH ×2 (16:05→22:49)
[2021-01-25] MEDS ORDERED: RT-ALBUTEROL SULF 2.5 MG/3 ML PRE-MIX VIAL IH PRN (17:00)
[2021-01-25] MEDS ORDERED: PATIENT MAY USE OWN MEDS, ALL MC SCH (17:30)
[2021-01-25] MEDS ORDERED: RT-ALBUTEROL HFA 8.5 GM INHALER IH PRN (17:45)
[2021-01-25] MEDS: SYMBICORT 160/4.5 MCG INHALER 6 GM (NON-FORMULARY) IH SCH (19:00)
[2021-01-25] MEDS: GABAPENTIN 100 MG (NEURONTIN) CAP PO SCH (20:23)
[2021-01-25] MEDS ORDERED: NON-FORMULARY MEDICATION 1 EA EA (Budesonide/Formoterol Fumarate (Symbicort 160-4.5 Mcg In IH SCH (21:00)
[2021-01-25] MEDS ORDERED: RT--FLUTICASONE/SALMETEROL 232-14 (AIRDUO RespiCLICK) IH SCH (21:00)
--- NOTE | 2021-01-25 21:18 | Consultation ---
HPI History of Present Illness: Pt admitted after left knee replacement. He states he is feeling pretty well and denies concerns. He uses 2 liters of oxygen with his cpap at night and 1 lpm during the day at home. He brought his cpap with him. Date seen by provider: Jan 25, 2021 Time Seen by Provider: 14:55 Attending Physician Orion Monterroso MD PCP No,Local Physician Consult Date of Admission Jan 25, 2021 at 07:40 Home Medications Home Medications Reviewed patient Home Medication Reconciliation performed by pharmacy medication reconciliations land mobile radio technician and/or nursing. Patients Allergies have been reviewed. Allergies Coded Allergies: No Known Drug Allergies (Unverified , 10/06/18) SDO-Orthrl-Mspswd Hx Patient Social History Smoking Status: Never a Smoker 2nd Hand Smoke Exposure: No Recent Hopitalizations: No Alcohol Use?: No Have you traveled recently?: No Immunizations Up To Date Date of Pneumonia Vaccine: Apr 01, 2019 Date of Influenza Vaccine: Apr 01, 2020 Past Medical History PMHx: COPD Osteoarthritis SurgHx: Cholecystectomy Hernia repair Bilateral inguinal hernia repair Left TKA Family Medical History Significant Family History: No Pertinent Family Hx Review of Systems ([facility]) Constitutional: No fever Respiratory: No short of breath Cardiovascular: No chest pain Physical Exam-([facility]) Physical Exam Vital Signs VS - Last 72 Hours, by Label 01/25/21 01/25/21 01/25/21 01/25/21 08:00 10:53 10:53 11:00 Temp 36.4 36.3 Pulse 81 Resp 18 16 20 B/P (MAP) 156/94 (114) 184/114 (137) 157/95 (115) Pulse Ox 94 95 99 O2 Delivery Room Air OxyMask OxyMask OxyMask O2 Flow Rate 10 10 10 01/25/21 01/25/21 01/25/21 01/25/21 11:10 11:15 11:20 11:30 Resp 18 16 16 B/P (MAP) 151/84 (106) 137/83 (101) 144/93 (110) Pulse Ox 100 99 99 O2 Delivery OxyMask OxyMask OxyMask OxyMask O2 Flow Rate 10 10 10 10 01/25/21 01/25/21 01/25/21 01/25/21 11:40 11:45 11:46 11:55 Temp 36.2 36.4 Pulse 75 Resp 14 20 11 B/P (MAP) 124/86 (99) 131/80 (97) 137/89 (105) Pulse Ox 94 95 95 O2 Delivery Nasal Cannula Nasal Cannula Nasal Cannula Nasal Cannula O2 Flow Rate 3 3.00 3 3 01/25/21 01/25/21 01/25/21 01/25/21 12:00 13:58 16:00 17:25 Temp 36.5 Pulse 72 Resp 18 20 B/P (MAP) 113/56 (75) Pulse Ox 95 93 O2 Delivery Nasal Cannula Nasal Cannula Nasal Cannula O2 Flow Rate 3.00 2.00 2.00 01/25/21 20:00 Temp 37.6 Pulse 79 Resp 16 B/P (MAP) 120/69 (86) Pulse Ox 93 O2 Delivery Nasal Cannula O2 Flow Rate 2.00 Capillary Refill : Less Than 3 Seconds General Appearance: no apparent distress Respiratory: lungs clear, normal breath sounds Cardiovascular: regular rate, rhythm Extremities: no pedal edema Neurologic/Psychiatric: alert, normal mood/affect Skin: normal color, warm/dry Assessment/Plan Assessment/Plan (1) Status post left knee replacement Status: Acute Assessment & Plan: Management per Orthopedic surgery (2) COPD (chronic obstructive pulmonary disease) Status: Chronic Assessment & Plan: Resume home inhalers, IS, supplemental oxygen (3) Sleep apnea Status: Chronic Assessment & Plan: Home cpap HUMAIRA DOMINGUEZ MD Jan 25, 2021 21:18
[2021-01-26] VITALS (7 sets, daily range): BP systolic 112–156; BP diastolic 70–89
[2021-01-26] MEDS: ACETAMINOPHEN 500 MG TAB (TYLENOL) PO PRN (00:20)
[2021-01-26] MEDS: NS IV 1000 ML 1,000 ML IV SCH ×3 (02:19→20:48)
[2021-01-26] MEDS: MULTIVIT W/MINERALS TAB (THERAGRAN M) PO SCH (06:18)
[2021-01-26] MEDS: oxyCODONE/APAP 5/325MG (PERCOCET 5) TABLET PO PRN ×4 (06:18→20:47)
[2021-01-26] MEDS: ENOXAPARIN 30 MG/0.3 ML (LOVENOX) SYR SC SCH ×2 (06:19→18:00)
[2021-01-26 06:30] LABS: HEMOGLOBIN 12.3 g/dL (13.3-17.7)
--- NOTE | 2021-01-26 07:58 | Progress Note ---
Standard Progress Note Progress Notes/Assess & Plan Date Seen by a Provider: Jan 26, 2021 Time Seen by a Provider: 07:57 Progress/Assessment & Plan no complaints radiographs--HW well positioned without fracture LLE--2 plus DP pulse with brisk cap refill, Intact DF and PF of toes and ankle. sensation intact to light touch throughout s/p LTKA mobilize as able Final Diagnosis no complaints Vital Signs Date Time Temp Pulse Resp B/P (MAP) Pulse Ox O2 Delivery O2 Flow Rate FiO2 01/26/21 06:48 37.2 01/26/21 04:29 37.2 98 19 134/73 (93) 90 NIV CPAP 01/26/21 00:50 37.8 01/26/21 00:20 38.4 01/26/21 00:00 38.4 90 19 112/70 (84) 92 NIV CPAP 01/25/21 21:00 Nasal Cannula 3.00 01/25/21 20:00 37.6 79 16 120/69 (86) 93 Nasal Cannula 2.00 01/25/21 17:25 Nasal Cannula 2.00 01/25/21 16:30 37.2 64 22 166/71 (102) 93 Nasal Cannula 2.00 01/25/21 16:00 36.5 72 20 113/56 (75) 93 Nasal Cannula 2.00 01/25/21 13:58 18 01/25/21 12:00 95 Nasal Cannula 3.00 01/25/21 11:55 Nasal Cannula 3 01/25/21 11:46 11 137/89 (105) 95 Nasal Cannula 3 01/25/21 11:45 36.4 75 20 131/80 (97) 95 Nasal Cannula 3.00 01/25/21 11:40 36.2 14 124/86 (99) 94 Nasal Cannula 3 01/25/21 11:30 16 144/93 (110) 99 OxyMask 10 01/25/21 11:20 16 137/83 (101) 99 OxyMask 10 01/25/21 11:15 OxyMask 10 01/25/21 11:10 18 151/84 (106) 100 OxyMask 10 01/25/21 11:00 20 157/95 (115) 99 OxyMask 10 01/25/21 10:53 OxyMask 10 01/25/21 10:53 36.3 16 184/114 (137) 95 OxyMask 10 01/25/21 08:00 36.4 81 18 156/94 (114) 94 Room Air I & O 01/26/21 07:00 Intake Total 2045 ml Output Total 1475 ml Balance 570 ml Laboratory Tests Test 01/26/21 05:40 Range/Units Hemoglobin 12.3 L 13.3-17.7 g/dL Hematocrit 38 L 40-54 % LLE--flexion 90 deg. No calf tenderness. NVI s/p LTKA doing well PT/OT NEYDA DESHPANDE MD Jan 26, 2021 07:58
[2021-01-26] MEDS ORDERED: UMECLIDINIUM BROMIDE (INCRUSE ELLIPTA) 7'S IH SCH (08:00)
[2021-01-26] MEDS ORDERED: ASPIRIN 81 MG CHEW (CHILDREN'S ASA) PO SCH (09:00)
[2021-01-26] MEDS: SYMBICORT 160/4.5 MCG INHALER 6 GM (NON-FORMULARY) IH SCH ×2 (09:10→21:40)
[2021-01-26] MEDS: TIOTROPIUM BROMIDE (SPIRIVA) 5'S INHALER IH SCH (09:10)
[2021-01-26] MEDS: ASPIRIN E.C. 81 MG (ECOTRIN) TAB PO SCH (09:11)
[2021-01-26] MEDS: SENNA W/DOCUSATE (SENOKOT S) TABLET PO SCH ×2 (09:11→20:48)
--- NOTE | 2021-01-26 09:54 | Physical Therapy Daily Note ---
PT Daily Note-Current Subjective Patient agrees to PT. Pain Numeric Pain Scale: 5-Moderate Pain Location: Left Location Body Site: Knee Pain Description: Acute Mental Status Patient Orientation: Normal For Age Attachments: Oxygen, IV Transfers SCALE: Activities may be completed with or without assistive devices. 2-Fqvgivaehc-fuvrasx completes the activity by him/herself with no assistance fr om a helper. 5-Set-up or Clean-up Assistance-helper sets up or cleans up; patient completes activity. [place] assists only prior to or following the activity. 4-Supervision or Touching Assistance-helper provides verbal cues and/or touching/steadying and/or contact guard assistance as patient completes activity. Assistance may be provided throughout the activity or intermittently. 3-Partial/Moderate Assistance-helper does LESS THAN HALF the effort. [place] lifts, holds or supports trunk or limbs, but provides less than half the effort. 2-Substantial/Maximal Assistance-helper does MORE THAN HALF the effort. [place] lifts or holds trunk or limbs and provides more than half the effort. 9-Faydteyre-dkpqmu does ALL the effort. Patient does none of the effort to complete the activity. Or, the assistance of 2 or more helpers is required for the patient to complete the activity. If activity was not attempted, code reason: 7-Patient Refused. 9-Not Applicable-not attempted and the patient did not perform the activity before the current illness, exacerbation or injury. 10-Not Attempted due to Environmental Limitations-(lack of equipment, weather restraints, etc.). 88-Not Attempted due to Medical Conditions or Safety Concerns. Sit to Stand (QC): 4 Chair/Tvi-dc-Qlhvy Xfer(QC): 4 Weight Bearing Left Lower Extremity: Left Weight Bearing/Tolerated Gait Training Does the Patient Walk?: Yes Distance: 150' Walk 10 feet (QC): 4 Walk 50 ft with 2 Turns(QC): 4 Walk 150 ft (QC): 4 Gait Assistive Device: FWW slow, steady, antalgic Exercises Seated Therapy Exercises: Ankle pumps, Long arc quads, Hip flexion Seated Reps: 15 (3 sets) Assessment Patient tolerated treatment and plan dismissal to home tomorrow a.m. PT Short Term Goals Short Term Goals Time Frame: Feb 01, 2021 Roll Left & Right: 5 Sit to lyin Lying to sitting on side of be: 5 Sit to stand: 5 Chair/ylr-ny-wxarw transfer: 5 Toilet transfer: 5 Walk 10 feet: 5 Walk 50 feet with two turns: 5 Walk 150 feet: 5 1 step (curb): 4 4 steps: 4 12 steps: 4 PT Adjunct Professor Of English Goals Jail Goals PT Adjunct Professor Of English Goals Time Frame: Feb 08, 2021 Roll Left & Right (QC): 6 Sit to Lying (QC): 6 Lying-Sitting on Side/Bed(QC): 6 Sit to Stand (QC): 6 Chair/Zmo-ll-Qsily Xfer(QC): 6 Toilet Transfer (QC): 6 Car Transfer (QC): 6 Walk 10 feet (QC): 6 Walk 50ft with 2 Turns (QC): 6 Walk 150 ft (QC): 6 1 Step (curb) (QC): 6 4 Steps (QC): 6 12 Steps (QC): 6 PT Plan Treatment/Plan Treatment Plan: Continue Plan of Care Treatment Plan: Bed Mobility, Education, Functional Activity Jeet, Functional Strength, Group Therapy, Gait, Safety, Therapeutic Exercise, Transfers Treatment Duration: Mar 08, 2021 Frequency: 11 times per week Estimated Hrs Per Day: .5 hour per day Patient and/or Family Agrees t: Yes Time/GCodes Time In: 817 Time Out: 840 Total Billed Treatment Time: 23 Total Billed Treatment 1 visit GT 13 min EX 10 min ASHLEIGH NASSAR PT Jan 26, 2021 09:54
--- NOTE | 2021-01-26 12:04 | Occupational Therapy Eval ---
OT Evaluation-General/PLF Medical Diagnosis Admission Date Jan 25, 2021 at 07:40 Medical Diagnosis: Left Knee Pain, left total knee arthroplasty. Onset Date: Jan 25, 2021 Therapy Diagnosis Therapy Diagnosis: Weakness, Decreased ADL skills Precautions Precautions/Isolations: Fall Prevention, Standard Precautions Weight Bear Status Weight Bearing Restriction: Weight Bearing/Tolerated Referral Physician: Dr. Monterroso Referral Reason: Activity Tolerance, Self Care, Evaluation/Treatment, Strengthening/ROM Medical History Pertinent Medical History: COPD, DM, HTN Additional Medical History Umbilical hernia, emphysema Current History Elective knee replacement Reviewed History: Yes Social History Home: Single Level Current Living Status: Spouse Entry Into Home: Stairs With Railing Steps Into Home: 1 Steps Inside Home: 0 Other Obstacles: Patient and report they have an upstairs, but do not have to go there. ADL-Prior Level of Function SCALE: Activities may be completed with or without assistive devices. 9-Eiwmgbiics-gzaqhzw completes the activity by him/herself with no assistance from a helper. 5-Set-up or Clean-up Assistance-helper sets up or cleans up; patient completes activity. [place] assists only prior to or following the activity. 4-Supervision or Touching Assistance-helper provides verbal cues and/or touching/steadying and/or contact guard assistance as patient completes activity. Assistance may be provided throughout the activity or intermittently. 3-Partial/Moderate Assistance-helper does LESS THAN HALF the effort. [place] lifts, holds or supports trunk or limbs, but provides less than half the effort. 2-Substantial/Maximal Assistance-helper does MORE THAN HALF the effort. [place] lifts or holds trunk or limbs and provides more than half the effort. 8-Fbkcqoayb-tplllr does ALL the effort. Patient does none of the effort to complete the activity. Or, the assistance of 2 or more helpers is required for the patient to complete the activity. If activity was not attempted, code reason: 7-Patient Refused. 9-Not Applicable-not attempted and the patient did not perform the activity before the current illness, exacerbation or injury. 10-Not Attempted due to Environmental Limitations-(lack of equipment, weather restraints, etc.). 88-Not Attempted due to Medical Conditions or Safety Concerns. ADL PLOF Comments Pt. reports that he is typically independent with daily tasks. He drives. He is disabled from firefighting. He does not use an assistive device at home. Self Care: Independent Functional Cognition: Independent DME/Equipment: Tub/Shower Drive Self: Yes OT Current Status Subjective Pt. does not report pain level, but does report stiffness in left knee. Appearance Pt. up in chair. Alert and oriented. Agreeable to work with OT. Mental Status/Objective Patient Orientation: Person, Place, Time, Situation Attachments: IV, Oxygen (Pt. wears 2 L at home as well.) Current Glasses/Contacts: Yes Upper Extremity ROM WFL Upper Extremity Strength WFL ADL-Treatment Eating (QC): 6 On/Off Footwear (QC): 2 (Pt. unable to doff slipper socks. Will bring in AE at next session and educate regarding.) Other Treatments Pt. up in chair when OT entered room. Spoke with pt. regarding prior level and home set up. Pt. states that his spouse works, and he will be alone at home. He asks about home health PT, and OT lets him know that social work with speak with him regarding this. Pt. is able to stand from chair level with min assist, and ambulate into bathroom with walker with min assist. Transferred to toilet with min assist. Pt. would like to sit for awhile and attempt BM. Nurse aide in room as well as spouse. All needs met. Education OT Patient Education: Correct positioning, Modified ADL techniques, Progress toward Goal/Update tx plan, Purpose of tx/functional activities, Reviewed precautions, Rehab process, Transfer techniques, Use of adapted equipment Teaching Recipient: Patient Teaching Methods: Demonstration, Discussion Response to Teaching: Verbalize Understanding, Return Demonstration OT Labor Relations Representative Goals Labor Relations Representative Goals Time Frame: Feb 02, 2021 Eating (QC): 6 Oral Hygiene (QC): 6 Toileting Hygiene (QC): 6 Shower/Bathe Self (QC): 4 Upper Body Dressing (QC): 5 Lower Body Dressing (QC): 4 (With AE) On/Off Footwear (QC): 6 (With AE) Additional Goals: 1-Demonstrate ADL Tasks, 2-Verbalize Understanding, 3- ImproveStrength/Jeet 1=Demonstrate adherence to instructed precautions during ADL tasks. 2=Patient will verbalize/demonstrate understanding of assistive devices/modifications for ADL. 3=Patient will improve strength/tolerance for activity to enable patient to perform ADL's. OT Education/Plan Problem List/Assessment Assessment: Decreased Activ Tolerance, Impaired I ADL's, Impaired Self-Care Skills Discharge Recommendations Plan/Recommendations: Continue POC Therapy Discharge Recommendati: Post Acute OT Equpiment Recommendations-D/C: Hip Kit Treatment Plan/Plan of Care Treatment,Training & Education: Yes Patient would benefit from OT for education, treatment and training to promote independence in ADL's, mobility, safety and/or upper extremity function for ADL's. Plan of Care: ADL Retraining, Functional Mobility, UE Funct Exercise/Act Treatment Duration: Feb 02, 2021 Frequency: 5 times per week Estimated Hrs Per Day: .25 hour per day Agreement: Yes Rehab Potential: Good Time/GCodes Start Time: 09:45 Stop Time: 10:00 Total Time Billed (hr/min): 15 Billed Treatment Time 1, DOM TIWARI OT Jan 26, 2021 12:04
--- NOTE | 2021-01-26 14:15 | Anesthesia-General Post-Op ---
General Patient Condition Mental Status/LOC: Same as Preop Cardiovascular: Satisfactory Nausea/Vomiting: Absent Respiratory: Satisfactory Pain: Controlled Complications: Absent Post Op Complications Complications None Follow Up Care/Instructions Patient Instructions None needed. Anesthesia/Patient Condition Patient Condition Patient is doing well, no complaints, stable vital signs, no apparent adverse anesthesia problems. No complications reported per nursing. KERON OWUSU CRNA Jan 26, 2021 14:15
--- NOTE | 2021-01-26 14:34 | Physical Therapy Daily Note ---
PT Daily Note-Current Subjective Patient agrees to PT. Pain Location: Left Location Body Site: Knee Pain Description: Acute Mental Status Patient Orientation: Normal For Age Attachments: IV Transfers SCALE: Activities may be completed with or without assistive devices. 4-Oqmjvgqbpi-ailnwbr completes the activity by him/herself with no assistance from a helper. 5-Set-up or Clean-up Assistance-helper sets up or cleans up; patient completes activity. [place] assists only prior to or following the activity. 4-Supervision or Touching Assistance-helper provides verbal cues and/or touching/steadying and/or contact guard assistance as patient completes activity. Assistance may be provided throughout the activity or intermittently. 3-Partial/Moderate Assistance-helper does LESS THAN HALF the effort. [place] lifts, holds or supports trunk or limbs, but provides less than half the effort. 2-Substantial/Maximal Assistance-helper does MORE THAN HALF the effort. [place] lifts or holds trunk or limbs and provides more than half the effort. 4-Mrhwxpbpj-wblbit does ALL the effort. Patient does none of the effort to complete the activity. Or, the assistance of 2 or more helpers is required for the patient to complete the activity. If activity was not attempted, code reason: 7-Patient Refused. 9-Not Applicable-not attempted and the patient did not perform the activity before the current illness, exacerbation or injury. 10-Not Attempted due to Environmental Limitations-(lack of equipment, weather restraints, etc.). 88-Not Attempted due to Medical Conditions or Safety Concerns. Sit to Lying (QC): 6 Sit to Stand (QC): 6 Chair/Czg-kt-Eusjp Xfer(QC): 6 Toilet Transfer (QC): 6 Weight Bearing Left Lower Extremity: Left Weight Bearing/Tolerated Gait Training Does the Patient Walk?: Yes Distance: 250' Walk 10 feet (QC): 5 Walk 50 ft with 2 Turns(QC): 5 Walk 150 ft (QC): 5 Gait Assistive Device: FWW slow, antalgic step to gait sequence with VC's for left knee extension with gait sequence Exercises Supine Ex: Ankle pumps, Quad Set, Heel Slides, Straight leg raise Supine Reps: 12 Seated Therapy Exercises: Long arc quads Seated Reps: 15 Assessment Patient up in recliner with needs met. Plan dismissal in a.m. Patient improving with treatment plan and has been instructed to perform HEP issued in preop. Spouse and patient voice understanding. PT Short Term Goals Short Term Goals Time Frame: Feb 01, 2021 Roll Left & Right: 5 Sit to lyin Lying to sitting on side of be: 5 Sit to stand: 5 Chair/hkj-qp-opjki transfer: 5 Toilet transfer: 5 Walk 10 feet: 5 Walk 50 feet with two turns: 5 Walk 150 feet: 5 1 step (curb): 4 4 steps: 4 12 steps: 4 PT Staff Physical Therapist Goals Staff Physical Therapist Goals PT Custodial Goals Time Frame: Feb 08, 2021 Roll Left & Right (QC): 6 Sit to Lying (QC): 6 Lying-Sitting on Side/Bed(QC): 6 Sit to Stand (QC): 6 Chair/Gin-rj-Qclbu Xfer(QC): 6 Toilet Transfer (QC): 6 Car Transfer (QC): 6 Walk 10 feet (QC): 6 Walk 50ft with 2 Turns (QC): 6 Walk 150 ft (QC): 6 1 Step (curb) (QC): 6 4 Steps (QC): 6 12 Steps (QC): 6 PT Plan Treatment/Plan Treatment Plan: Continue Plan of Care Treatment Plan: Bed Mobility, Education, Functional Activity Jeet, Functional Strength, Group Therapy, Gait, Safety, Therapeutic Exercise, Transfers Treatment Duration: Mar 08, 2021 Frequency: 11 times per week Estimated Hrs Per Day: .5 hour per day Patient and/or Family Agrees t: Yes Time/GCodes Time In: 1328 Time Out: 1403 Total Billed Treatment Time: 35 Total Billed Treatment 1 visit GT 15 min EX 20 min ASHLEIGH NASSAR PT Jan 26, 2021 14:33
[2021-01-26] MEDS: GABAPENTIN 100 MG (NEURONTIN) CAP PO SCH (20:46)
[2021-01-27 03:02] VITALS: BP 139/90
[2021-01-27] MEDS: NS IV 1000 ML 1,000 ML IV SCH (04:06)
[2021-01-27 05:17] LABS: HEMOGLOBIN 12.3 g/dL (13.3-17.7)
[2021-01-27] MEDS: MULTIVIT W/MINERALS TAB (THERAGRAN M) PO SCH (05:25)
[2021-01-27] MEDS: ENOXAPARIN 30 MG/0.3 ML (LOVENOX) SYR SC SCH (05:25)
--- NOTE | 2021-01-27 05:30 | DISCHARGE SUMMARY ---
DATE OF SERVICE: DIAGNOSES: 1. Left knee primary osteoarthritis. 2. Allergic rhinitis. 3. Chronic obstructive pulmonary disease. 4. Diabetes. 5. Hypertension. 6. Umbilical hernia pain. PROCEDURE: Left total knee arthroplasty. SUMMARY: The patient is a 60-year-old gentleman who was admitted the day of left total knee arthroplasty, which he underwent without complications. Postoperatively, he did very well. At time of discharge, his wound was clean, dry and no calf tenderness. Negative Homans sign. He has had cleared physical therapy and was tolerating his diet well and tolerating pain with oral pain medication. CONDITION AT DISCHARGE: Good. DISCHARGE DIET: Regular. FOLLOWUP: Followup is in three weeks. ACTIVITIES: Weightbearing as tolerated with walker. DISCHARGE MEDICATIONS: Home medications, Percocet as needed for pain and one aspirin per day for 30 days. Job ID: [id number] DocumentID: [id number] Dictated Date: 01/26/2021 17:20:40 Cash Applications Representative Date: 01/27/2021 05:29:33 Dictated By: NEYDA DESHPANDE MD
--- NOTE | 2021-01-27 07:06 | Progress Note ---
Standard Progress Note Progress Notes/Assess & Plan Date Seen by a Provider: Jan 27, 2021 Time Seen by a Provider: 07:05 Progress/Assessment & Plan no complaints radiographs--HW well positioned without fracture LLE--2 plus DP pulse with brisk cap refill, Intact DF and PF of toes and ankle. sensation intact to light touch throughout s/p LTKA mobilize as able Final Diagnosis no complaints Vital Signs Date Time Temp Pulse Resp B/P (MAP) Pulse Ox O2 Delivery O2 Flow Rate FiO2 01/27/21 03:02 37.2 115 20 139/90 (106) 90 NIV Bilevel 01/26/21 23:57 38.3 116 22 136/79 (98) 91 Nasal Cannula 2.00 01/26/21 21:40 95 NIV CPAP 2.00 01/26/21 20:45 Nasal Cannula 3.00 01/26/21 20:36 37.7 98 20 151/85 (107) 94 Nasal Cannula 2.00 01/26/21 16:00 36.8 97 20 133/80 (97) 93 Nasal Cannula 2.00 01/26/21 15:35 Nasal Cannula 2.00 01/26/21 12:00 37.1 96 20 148/89 (108) 95 Nasal Cannula 2.00 01/26/21 08:53 90 Nasal Cannula 2.00 01/26/21 08:00 35.8 126 20 156/86 (109) 92 Nasal Cannula 2.00 I & O 01/27/21 07:00 Intake Total 1820 ml Output Total 355 ml Balance 1465 ml Laboratory Tests Test 01/27/21 04:25 Range/Units Hemoglobin 12.3 L 13.3-17.7 g/dL Hematocrit 39 L 40-54 % LLE--incision clean and dry. No calf tenderness. Neg Kitty's s/p LTKA doing well DC home after PT today NEYDA DESHPANDE MD Jan 27, 2021 07:06
[2021-01-27] MEDS: TIOTROPIUM BROMIDE (SPIRIVA) 5'S INHALER IH SCH (07:14)
[2021-01-27] MEDS: SYMBICORT 160/4.5 MCG INHALER 6 GM (NON-FORMULARY) IH SCH (07:15)
[2021-01-27] MEDS ORDERED: morphine INJ 4 MG/ML 1 ML (VIAL/SYRINGE) IVP PRN (07:15)
[2021-01-27 07:55] VITALS: BP 152/97
[2021-01-27] MEDS: SENNA W/DOCUSATE (SENOKOT S) TABLET PO SCH (08:28)
[2021-01-27] MEDS: ASPIRIN E.C. 81 MG (ECOTRIN) TAB PO SCH (08:28)
[2021-01-27] MEDS: ACETAMINOPHEN 500 MG TAB (TYLENOL) PO PRN (08:29)
--- NOTE | 2021-01-27 09:32 | Physical Therapy Daily Note ---
PT Daily Note-Current Subjective Patient agrees to PT. Pain Numeric Pain Scale: 4 Location: Left Location Body Site: Knee Pain Description: Acute Mental Status Patient Orientation: Normal For Age Transfers SCALE: Activities may be completed with or without assistive devices. 4-Kyutubavbs-vqsoncx completes the activity by him/herself with no assistance from a helper. 5-Set-up or Clean-up Assistance-helper sets up or cleans up; patient completes activity. [place] assists only prior to or following the activity. 4-Supervision or Touching Assistance-helper provides verbal cues and/or touching/steadying and/or contact guard assistance as patient completes activity . Assistance may be provided throughout the activity or intermittently. 3-Partial/Moderate Assistance-helper does LESS THAN HALF the effort. [place] lifts, holds or supports trunk or limbs, but provides less than half the effort. 2-Substantial/Maximal Assistance-helper does MORE THAN HALF the effort. [place] lifts or holds trunk or limbs and provides more than half the effort. 0-Ugsokecec-fgegbv does ALL the effort. Patient does none of the effort to complete the activity. Or, the assistance of 2 or more helpers is required for the patient to complete the activity. If activity was not attempted, code reason: 7-Patient Refused. 9-Not Applicable-not attempted and the patient did not perform the activity before the current illness, exacerbation or injury. 10-Not Attempted due to Environmental Limitations-(lack of equipment, weather restraints, etc.). 88-Not Attempted due to Medical Conditions or Safety Concerns. Sit to Stand (QC): 6 Chair/Azb-qp-Qjcgw Xfer(QC): 6 Toilet Transfer (QC): 6 Weight Bearing Left Lower Extremity: Left Weight Bearing/Tolerated Gait Training Does the Patient Walk?: Yes Distance: 250' Walk 10 feet (QC): 6 Walk 50 ft with 2 Turns(QC): 6 Walk 150 ft (QC): 6 Gait Assistive Device: FWW slow, antalgic/VC's for heel toe gait sequence Exercises Seated Therapy Exercises: Ankle pumps, Long arc quads Seated Reps: 15 (3 sets) Assessment Patient tolerated treatment well and will dismiss to home on this date with spouse and home health. PT Short Term Goals Short Term Goals Time Frame: Feb 01, 2021 Roll Left & Right: 5 Sit to lyin Lying to sitting on side of be: 5 Sit to stand: 5 Chair/zdg-qb-kukhf transfer: 5 Toilet transfer: 5 Walk 10 feet: 5 Walk 50 feet with two turns: 5 Walk 150 feet: 5 1 step (curb): 4 4 steps: 4 12 steps: 4 PT Slider Assembler Goals Assisted Goals PT Slider Assembler Goals Time Frame: Feb 08, 2021 Roll Left & Right (QC): 6 Sit to Lying (QC): 6 Lying-Sitting on Side/Bed(QC): 6 Sit to Stand (QC): 6 Chair/Qcl-mr-Nyzdv Xfer(QC): 6 Toilet Transfer (QC): 6 Car Transfer (QC): 6 Walk 10 feet (QC): 6 Walk 50ft with 2 Turns (QC): 6 Walk 150 ft (QC): 6 1 Step (curb) (QC): 6 4 Steps (QC): 6 12 Steps (QC): 6 PT Plan Treatment/Plan Treatment Plan: Discontinue PT Treatment Plan: Bed Mobility, Education, Functional Activity Jeet, Functional Strength, Group Therapy, Gait, Safety, Therapeutic Exercise, Transfers Treatment Duration: Mar 08, 2021 Frequency: 11 times per week Estimated Hrs Per Day: .5 hour per day Patient and/or Family Agrees t: Yes Time/GCodes Time In: 730 Time Out: 753 Total Billed Treatment Time: 23 Total Billed Treatment 1 visit EX 9 min GT 14 min ASHLEIGH NASSAR PT Jan 27, 2021 09:32
--- NOTE | 2021-01-27 11:37 | Occupational Ther Daily Note ---
OT Current Status-Daily Note Subjective No pain reported. Mental Status/Objective Patient Orientation: Person, Place, Time, Situation ADL-Treatment Therapy Code Descriptions/Definitions Functional [place] Measure: 0=Not Assessed/NA 4=Minimal Assistance 1=Total Assistance 5=Supervision or Setup 2=Maximal Assistance 6=Modified [place] 3=Moderate Assistance 7=Complete IndependenceSCALE: Activities may be completed with or without assistive devices. 8-Tsomwzlxsl-fivjnku completes the activity by him/herself with no assistance from a helper. 5-Set-up or Clean-up Assistance-helper sets up or cleans up; patient completes activity. [place] assists only prior to or following the activity. 4-Supervision or Touching Assistance-helper provides verbal cues and/or touching/steadying and/or contact guard assistance as patient completes activity. Assistance may be provided throughout the activity or intermittently. 3-Partial/Moderate Assistance-helper does LESS THAN HALF the effort. [place] lifts, holds or supports trunk or limbs, but provides less than half the effort. 2-Substantial/Maximal Assistance-helper does MORE THAN HALF the effort. [place] lifts or holds trunk or limbs and provides more than half the effort. 0-Vchmrcvdl-vwktvd does ALL the effort. Patient does none of the effort to complete the activity. Or, the assistance of 2 or more helpers is required for the patient to complete the activity. If activity was not attempted, code reason: 7-Patient Refused. 9-Not Applicable-not attempted and the patient did not perform the activity before the current illness, exacerbation or injury. 10-Not Attempted due to Environmental Limitations-(lack of equipment, weather restraints, etc.). 88-Not Attempted due to Medical Conditions or Safety Concerns. Eating (QC): 6 Shower/Bathe Self (QC): 3 (Min assist to dry rear sindi area thoroughly, and dry bilateral feet.) Upper Body Dressing (QC): 5 Lower Body Dressing (QC): 4 (SBA. Pt. able to thread bilateral feet into underwear and shorts, and don over hips in stance.) On/Off Footwear: 3 (Mod assist with tie shoes. Pt. able to don socks with sock aide, but requires assistance with shoes due to shoe strings.) Toileting Hygiene (QC): 6 Toilet Transfer (QC): 6 Other Treatment Pt. seen for OT. Pt. finishing toileting when OT entered room. He stood independently, and ambulated to chair independently. OT brought in AE, and educated him and spouse on use of it. Pt. agrees to shower, and completes shower, Pt. able to wash all parts, but did have difficulty drying rear sindi area due to size of shower. Pt. uses sock aide for donning socks, but does not need any more equipment. Pt. ambulated back to chair with walker with Mod I. All needs met. Education OT Patient Education: Correct positioning, Modified ADL techniques, Progress toward Goal/Update tx plan, Purpose of tx/functional activities, Reviewed precautions, Rehab process, Transfer techniques, Use of adapted equipment Teaching Recipient: Patient Teaching Methods: Demonstration, Discussion Response to Teaching: Verbalize Understanding, Return Demonstration OT Usp Goals Usp Goals Time Frame: Feb 02, 2021 Eating (QC): 6 Oral Hygiene (QC): 6 Toileting Hygiene (QC): 6 Shower/Bathe Self (QC): 4 Upper Body Dressing (QC): 5 Lower Body Dressing (QC): 4 (With AE) On/Off Footwear (QC): 6 (With AE) Additional Goals: 1-Demonstrate ADL Tasks, 2-Verbalize Understanding, 3- ImproveStrength/Jeet 1=Demonstrate adherence to instructed precautions during ADL tasks. 2=Patient will verbalize/demonstrate understanding of assistive devices/modifications for ADL. 3=Patient will improve strength/tolerance for activity to enable patient to perform ADL's. OT Education/Plan Problem List/Assessment Assessment: Decreased Activ Tolerance Discharge Recommendations Plan/Recommendations: Discontinue OT Therapy Discharge Recommendati: Home & Family Treatment Plan/Plan of Care Treatment,Training & Education: Yes Plan of Care: OTHER (Goals met) Treatment Duration: Jan 27, 2021 Frequency: 5 times per week Estimated Hrs Per Day: .25 hour per day Agreement: Yes Rehab Potential: Good Time/GCodes Start Time: 10:35 Stop Time: 11:20 Total Time Billed (hr/min): 45 Billed Treatment Time 1, ADL x 3 DOM BRIAN OT Jan 27, 2021 11:37
[2021-01-27 12:38] VITALS: BP 152/97
== END 2021-01-27 12:41 | disposition home health service (06) | DRG 470 ==
LOC: 4TH 07:40 → SURG 07:41 → 4TH 12:16
PROVIDERS: ADMIT Orthopaedic Surgery; ATTEND Orthopaedic Surgery
PROC: 5A09357 Assistance with Respiratory Ventilation, Less than 24 Consecutive Hours, Continuous Positive Airway Pressure (ICD-10-PCS; 2021-01-25)
PROC: 0SRD0J9 Replacement of Left Knee Joint with Synthetic Substitute, Cemented, Open Approach (ICD-10-PCS; principal; 2021-01-25 09:16)
DX: M17.12 Unilateral primary osteoarthritis, left knee (principal); J44.9 Chronic obstructive pulmonary disease, unspecified; E11.9 Type 2 diabetes mellitus without complications; I10 Essential (primary) hypertension; G47.39 Other sleep apnea; J30.9 Allergic rhinitis, unspecified; K42.9 Umbilical hernia without obstruction or gangrene
CPT/HCPCS: 36415; 73560; 85014; 85018; 86850; 86900; 86901; 87081; 94640; 94664; 94760

== ENCOUNTER 2021-04-20 11:50 | Outpatient (CLI) | payer MEDICARE ==
[~2021-04-20] VITALS: Ht 175.3 cm; Wt 131.6 kg
[~2021-04-20 11:50] MED LIST changes: -NALOXONE 0.4 MG/ML 1 ML (NARCAN) VIAL IV PRN; -ONDANSETRON 4 MG/2 ML (SDV) Z0FRAN IVP PRN; -diphenhydrAMINE 50 MG/ML INJ (BENADRYL) IVP PRN; -morphine PCA 100 MG/100 ML BAG IV PRN
[2021-04-20 12:37] LABS: BASOPHILS # (AUTO) 0.1 10^3/uL (0.0-0.1); BASOPHILS % (AUTO) 1 % (0-10); EOSINOPHILS # (AUTO) 0.2 10^3/uL (0.0-0.3); EOSINOPHILS % (AUTO) 3 % (0-10); HEMATOCRIT 42 % (40-54); HEMOGLOBIN 13.6 g/dL (13.3-17.7); LYMPHOCYTES # (AUTO) 2.1 10^3/uL (1.0-4.0); LYMPHOCYTES % (AUTO) 29 % (12-44); MEAN CORPUSCULAR HEMOGLOBIN 30 pg (25-34); MEAN CORPUSCULAR HGB CONC 32 g/dL (32-36); MEAN CORPUSCULAR VOLUME 94 fL (80-99); MEAN PLATELET VOLUME 10.7 fL (9.0-12.2); MONOCYTES # (AUTO) 0.5 10^3/uL (0.0-1.0); MONOCYTES % (AUTO) 7 % (0-12); NEUTROPHILS # (AUTO) 4.3 10^3/uL (1.8-7.8); NEUTROPHILS % (AUTO) 59 % (42-75); PLATELET COUNT 265 10^3/uL (130-400); WHITE BLOOD COUNT 7.2 10^3/uL (4.3-11.0)
[2021-04-20 12:40] LABS: BILIRUBIN,URINE NEGATIVE (NEGATIVE); CLARITY,URINE CLEAR; COLOR,URINE YELLOW; GLUCOSE, URINE (UA) NEGATIVE (NEGATIVE); KETONES,URINE NEGATIVE (NEGATIVE); LEUKOCYTE ESTERASE ,URINE TRACE (NEGATIVE); NITRITE,URINE NEGATIVE (NEGATIVE); PH,URINE 6.5 (5-9); PROTEIN,URINE NEGATIVE (NEGATIVE)
[2021-04-20 12:53] LABS: BACTERIA,URINE NEGATIVE /HPF; RBC,URINE RARE /HPF; WBC,URINE 0-2 /HPF
[2021-04-20 12:54] LABS: ERYTHROCYTE SEDIMENTATION RATE 29 MM/HR (0-30)
[2021-04-20 12:58] LABS: PROTHROMBIN TIME PATIENT 13.4 SEC (12.2-14.7)
[2021-04-20 13:07] LABS: ALBUMIN 3.9 GM/DL (3.2-4.5); BILIRUBIN,TOTAL 0.6 MG/DL (0.1-1.0); CALCIUM 9.1 MG/DL (8.5-10.1); CREATININE SERUM 0.7 MG/DL (0.60-1.30); POTASSIUM 3.7 MMOL/L (3.6-5.0); TOTAL PROTEIN 7.4 GM/DL (6.4-8.2)
== END 2021-04-20 15:15 | disposition home or self-care (01) ==
LOC: PREOP 11:50
PROVIDERS: ATTEND Orthopaedic Surgery
DX: Z01.812 Encounter for preprocedural laboratory examination (principal); S83.002A Unspecified subluxation of left patella, initial encounter; X58.XXXA Exposure to other specified factors, initial encounter; Z20.822 Contact with and (suspected) exposure to COVID-19
CPT/HCPCS: 36415; 80053; 81000; 85025; 85610; 85652; 86850; 86900; 86901; 87081; 87635

== ENCOUNTER 2021-04-26 07:26 | Inpatient (IN) | payer MEDICARE ==
--- NOTE | 2021-04-19 13:35 | HISTORY AND PHYSICAL ---
DATE OF SERVICE: ADMISSION HISTORY AND PHYSICAL This will be for inpatient admission on 04/26/2021 for left total knee arthroplasty revision. HISTORY OF PRESENT ILLNESS: The patient is a 60-year-old gentleman who underwent a left total knee arthroplasty in January. He initially did very well, then began to experience patellar instability. This did not improve with physical therapy and due to continued pain and instability, the patient elected to proceed with surgical intervention. REVIEW OF SYSTEMS: No chest pain, no shortness of breath, no dysuria. PAST MEDICAL HISTORY: Allergic rhinitis, COPD, diabetes type 2, hypertension, umbilical hernia. PAST SURGICAL HISTORY: Cholecystectomy, left knee arthroscopy, left total knee arthroplasty. FAMILY HISTORY: Noncontributory. PRIMARY CARE PROVIDER: Kat Chávez. MEDICATIONS: Steroid inhaler, albuterol, Advair, sildenafil, prednisone, omeprazole, nitroglycerin, lisinopril, ketaconazole, Keflex and hydrocodone. ALLERGIES: No known drug allergies. SOCIAL HISTORY: The patient denies alcohol use. He is a former smoker. PHYSICAL EXAMINATION: GENERAL: The patient is well-developed, well-nourished, in no acute distress. HEENT: Normocephalic, atraumatic. Pupils are equal, round and reactive to light. Oropharynx is clear. NECK: Supple, no lymphadenopathy. LUNGS: Clear to auscultation bilaterally. HEART: Regular rate and rhythm. ABDOMEN: Soft, nontender, nondistended. EXTREMITIES: Left knee demonstrates well-healed incision. There is no erythema or warmth. He has a slight effusion. When moving from full flexion to extension, his patella slides laterally at the extreme of extension. There is no varus valgus laxity. Negative anterior and posterior drawer. Range of motion is 0/0/120. IMPRESSION: Patellar instability, status post total knee arthroplasty. PLAN: Left knee revision. We discussed risks, benefits, options, ramifications and recovery. He understands and wishes to proceed. Job ID: [id number] DocumentID: [id number] Dictated Date: 04/10/2021 15:07:51 Assembler [employer] Spider Date: 04/10/2021 15:22:59 Dictated By: NEYDA DESHPANDE MD
[~2021-04-26] VITALS: Ht 175.3 cm; Wt 131.6 kg
[2021-04-26] VITALS (11 sets, daily range): BP systolic 127–165; BP diastolic 69–96
[2021-04-26] MEDS ORDERED: CEFUROXIME INJECTION 1,500 MG in NS (IVPB) 50 ML IV ONE (08:00)
[2021-04-26] MEDS ORDERED: INTRA-ARTICULAR IU ONE ×9 (08:00)
[2021-04-26] MEDS ORDERED: MIDAZOLAM 2 MG/2 ML (VERSED) VIAL ONE (08:21)
[2021-04-26] MEDS ORDERED: LIDOCAINE PF 2% 5 ML (XYLOCAINE) VIAL ONE (08:21)
[2021-04-26] MEDS ORDERED: proPOfol 200 MG/20 ML (DIPRIVAN) VIAL IV ONE ×2 (08:21→09:51)
[2021-04-26] MEDS ORDERED: fentaNYL INJ 100 MCG/2 ML AMP ONE ×2 (08:21→09:48)
[2021-04-26] MEDS: LACTATED RINGERS 1,000 ML IV PRN ×3 (08:24→11:29)
[2021-04-26] MEDS ORDERED: CEFUROXIME 1.5 GM/15 ML (ZINACEF) VIAL ONE (08:48)
--- NOTE | 2021-04-26 09:07 | Progress Note-Pre Operative ---
Pre-Operative Progress Note H&P Reviewed The H&P was reviewed, patient examined and no changes noted. Date Seen by Provider: Apr 26, 2021 Time Seen by Provider: 08:58 Date H&P Reviewed: Apr 26, 2021 Time H&P Reviewed: 07:11 Pre-Operative Diagnosis: left patella instability status post TKA NEYDA DESHPANDE MD Apr 26, 2021 09:06
--- NOTE | 2021-04-26 09:08 | Progress Note-Post Operative ---
Post-Operative Progess Note Surgeon (s)/On Air Announcer (s) Surgeon NEYDA DESHPANDE MD On Air Announcer: Barry Sparks Pre-Operative Diagnosis left patella instability status post TKA Post-Operative Diagnosis left patella instability status post TKA Procedure & Operative Findings Date of Procedure 04/26/21 Procedure Performed/Findings left patella realignment Anesthesia Type GETA Estimated Blood Loss Estimated blood loss (mL): minimal Specimens/Packing Specimens Removed none Packing: none NEYDA DESHPANDE MD Apr 26, 2021 09:08
--- NOTE | 2021-04-26 09:10 | D/C HH Face to Face Order ---
D/C Face to Face Orders Reconcile Patient Problems Problems Reviewed?: Yes Instructions for Patient Via [facility], Patient Instructions/FollowUp: three weeks Physician to follow Patient: three weeks Discharge Diet for Home: Regular Diet Patient Data-Allergies,Ht & Wt Patient Allergies: Coded Allergies: No Known Drug Allergies (Unverified , 10/06/18) Home Health Need/Face to Face Date of Face to Face: Apr 26, 2021 Clinical Findings: Muscle weakness, Pain with ambulation, Unsteady gait I have seen Pt mnzh-tp-tdzi: Yes Discharged To: Home Diagnosis/Conditions: left total knee revision Patient is Homebound due to: Dave fall risk due to instabilty, Pain w/ambula tion Homebound Status Due to the above stated illness, injury or surgical procedure (medical c ondition or diagnosis) and associated clinical findings, the patient is homebound because of his/her inability to leave home except with aid of a supportive device and/or person AND leaving the home requires a considerable and taxing effort or is medically contraindicated. Pt req the following assistanc: [facility] Nursing Orders Home Health Services Order: Physical Therapy-Evaluate & Treat DC left knee meng and apply steri strips 05/10/21 Therapy Orders Therapy Orders: Physical Therapy, PT to assess for OT Therapy Specific Orders: Eval assistive deivces, Teach enviro modifications/safety, Gait training, Increase strength/endurance, Provider maintenance therapy Certify Stmt I certify that this patient is under my care and that I, a nurse practitioner or a physician; a curriculum assistant principal working with me, had a face to face encounter that - meets the physician face to face encounter requirements with this patient as dated. NEYDA DESHPANDE MD Apr 26, 2021 09:10
[2021-04-26] MEDS ORDERED: TRANEXAMIC ACID 100 MG/ML 10 ML INJECTION ONE (09:35)
[2021-04-26] MEDS ORDERED: meTOprolol 5 MG/5 ML (LOPRESSOR) VIAL ONE (09:47)
[2021-04-26] MEDS ORDERED: HYDROmorphone 2 MG/ML VIAL (DILAUDID) IV ONE (11:00)
[2021-04-26] MEDS ORDERED: ONDANSETRON 4 MG/2 ML (SDV) Z0FRAN IVP PRN ×2 (11:00→11:30)
[2021-04-26] MEDS ORDERED: morphine INJ 10 MG/ML 1ML (SYR OR VIAL) IVP ONE (11:00)
[2021-04-26] MEDS ORDERED: morphine INJ 10 MG/ML 1ML (SYR OR VIAL) ONE (11:01)
[2021-04-26] MEDS ORDERED: oxyCODONE/APAP 5/325MG (PERCOCET 5) TABLET PO PRN (11:30)
[2021-04-26] MEDS ORDERED: morphine PCA 100 MG/100 ML BAG IV PRN (11:30)
[2021-04-26] MEDS ORDERED: diphenhydrAMINE 50 MG/ML INJ (BENADRYL) IVP PRN (11:30)
[2021-04-26] MEDS ORDERED: NALOXONE 0.4 MG/ML 1 ML (NARCAN) VIAL IV PRN (11:30)
--- NOTE | 2021-04-26 11:38 | Diagnostic Imaging Report ---
HISTORY: Left knee arthroplasty revision. TECHNIQUE: Single frontal view of the left knee. COMPARISON: 01/25/2021. FINDINGS: There is a total left knee arthroplasty. Alignment is normal on this frontal view. Skin meng are noted. No hardware complication is seen. IMPRESSION: Total left knee arthroplasty with no hardware complication seen on this frontal view. Dictated by: Dictated on workstation # [id number]
[2021-04-26] MEDS ORDERED: ONDANSETRON 4 MG/2 ML (SDV) Z0FRAN ONE (11:40)
[2021-04-26] MEDS: NS IV 1000 ML 1,000 ML IV SCH (12:16)
--- NOTE | 2021-04-26 14:06 | Progress Note ---
Standard Progress Note Progress Notes/Assess & Plan Date Seen by a Provider: Apr 26, 2021 Time Seen by a Provider: 12:15 Progress/Assessment & Plan post op check no complaints radiographs HW well positioned without fracture LLE NVI distally mobilize as able NEYDA DESHPANDE MD Apr 26, 2021 14:06
--- NOTE | 2021-04-26 15:12 | Physical Therapy Evaluation ---
PT Evaluation-General Medical Diagnosis Admission Date Apr 26, 2021 at 07:26 Medical Diagnosis: left patella instability status post TKA Onset Date: Apr 26, 2021 Therapy Diagnosis Therapy Diagnosis: Gait deficit, strength deficit Weight Bear Status Left Lower Extremity: Left Weight Bearing/Tolerated Left knee immobilizer locked at 60 degrees flexion Referral Physician: Dr. Monterroso Reason for Referral: Evaluation/Treatment Medical History Pertinent Medical History: COPD, DM, HTN Social History Home: Single Level Current Living Status: Spouse Entry Into Home: Ramp Prior Prior Level of Function SCALE: Activities may be completed with or without assistive devices. 0-Xeodplchyh-daualcl completes the activity by him/herself with no assistance from a helper. 5-Set-up or Clean-up Assistance-helper sets up or cleans up; patient completes activity. [place] assists only prior to or following the activity. 4-Supervision or Touching Assistance-helper provides verbal cues and/or touching/steadying and/or contact guard assistance as patient completes activity. Assistance may be provided throughout the activity or intermittently. 3-Partial/Moderate Assistance-helper does LESS THAN HALF the effort. [place] lifts, holds or supports trunk or limbs, but provides less than half the effort. 2-Substantial/Maximal Assistance-helper does MORE THAN HALF the effort. [place] lifts or holds trunk or limbs and provides more than half the effort. 1-Cugwwkryv-gtzajl does ALL the effort. Patient does none of the effort to complete the activity. Or, the assistance of 2 or more helpers is required for the patient to complete the activity. If activity was not attempted, code reason: 7-Patient Refused. 9-Not Applicable-not attempted and the patient did not perform the activity before the current illness, exacerbation or injury. 10-Not Attempted due to Environmental Limitations-(lack of equipment, weather restraints, etc.). 88-Not Attempted due to Medical Conditions or Safety Concerns. Bed Mobility: 6 Transfers (B,C,W/C): 6 Gait: 6 Stairs: 6 Indoor Mobility (Ambulation): Independent Stairs: Independent Prior Device Use: Has FWW, W/C, BSC, sh. chair, O2, CPAP PT Evaluation-Current Subjective Patient lying supine in bed upon PT arrival, agreeable to treatment. Patient reports pain at 0/10 currently Objective Patient Orientation: Person, Place, Time, Situation ROM/Strength ROM Lower Extremities Left knee N/A secondary to surgery. Right LE WFL all planes Strength Lower Extremities Right LE 4/5 all planes; left LE N/A secondary to recent surgery. Sensory Vision: Wears Glasses Hearing: Functional Sensation Right Lower Extremit: Intact Sensation Left Lower Extremity: Intact Transfers Roll Left to Right (QC): 3 Sit to Lying (QC): 3 Lying to Sitting/Side of Bed(Q: 3 Sit to Stand (QC): 3 (Mod A) Chair/Mfn-fd-Vtsob Xfer(QC): 3 Toilet Transfer (QC): 3 Gait Does the Patient Walk?: Yes Mode of Locomotion: Walk Anticipated Mode of Locomotion: Walk Walk 10 feet (QC): 3 Distance: 20 feet x 2 Gait Assistive Device: FWW Balance Sitting Static: Good Sitting Dynamic: Good Standing Static: Fair Standing Dynamic: Fair Assessment/Needs Patient tolerated treatment well. Demonstrates min a for all bed mobility and transfers except mod A for sit to stand. Patient ambulates 20 feet x 2 with FWW, with min A and verbal cues for safety, progression, posture and balance. Patient requires mod A for sit to stand from toilet. While sitting on the bed, we attempted to perform LE therapeutic exercises, however patient became nauseated and returned to bed. Patient in bed post treatment with all needs met, nursing notified, call light in reach and in the room. Patient is to have left knee immobilizer locked out at 60 degrees flexion, WBAT left LE Rehab Potential: Fair PT Nursing Home Goals Nursing Home Goals PT Nursing Home Goals Time Frame: May 09, 2021 Roll Left & Right (QC): 6 Sit to Lying (QC): 6 Lying-Sitting on Side/Bed(QC): 6 Sit to Stand (QC): 6 Chair/Wlt-tq-Wasgr Xfer(QC): 6 Toilet Transfer (QC): 6 Does the Patient Walk: Yes Walk 10 feet (QC): 6 Walk 50ft with 2 Turns (QC): 6 Walk 150 ft (QC): 6 PT Plan Problem List Problem List: Activity Tolerance, Functional Strength, Safety, Balance, Gait, Transfer, Bed Mobility, ROM Treatment/Plan Treatment Plan: Continue Plan of Care Treatment Plan: Bed Mobility, Education, Functional Activity Jeet, Functional Strength, Group Therapy, Gait, Safety, Therapeutic Exercise, Transfers Treatment Duration: Jun 07, 2021 Frequency: 7 times per week Estimated Hrs Per Day: .25 hour per day Patient and/or Family Agrees t: Yes Safety Risks/Education Patient Education: Gait Training, Transfer Techniques Teaching Recipient: Patient, Family Teaching Methods: Demonstration, Discussion Response to Teaching: Verbalize Understanding, Return Demonstration Discharge Recommendations Target Placement Home with Time/GCodes Time In: 1427 Time Out: 1455 Total Billed Treatment Time: 28 Total Billed Treatment Visit, wally Snowden JOHN A PT Apr 26, 2021 15:12
--- NOTE | 2021-04-26 16:42 | OPERATIVE REPORT ---
DATE OF SERVICE: 04/26/2021 POSTOPERATIVE DIAGNOSIS: Patellar instability, status post left total knee arthroplasty. PREOPERATIVE DIAGNOSIS: Patellar instability, status post left total knee arthroplasty. PROCEDURE: Left patellar realignment. SURGEON: Orion Deshpande MD PHYSICAL THERAPY AID: Barry Sparks, who assisted throughout the procedure and closed the incision. ANESTHESIA: General endotracheal by Monika Zhong CRNA. TOURNIQUET TIME: Approximately 55 minutes at 300 mmHg. ESTIMATED BLOOD LOSS: Minimal. DRAINS: None. COMPLICATIONS: None. POSTOPERATIVE PLAN: He is brace wear for 4 to 6 weeks, initially at 0 to 60 degrees range of motion with weightbearing as tolerated. STATEMENT OF MEDICAL NECESSITY: The patient is a 60-year-old gentleman who 3 months ago underwent a left total knee arthroplasty, done well with the exception complaints of patellar instability when going into full extension. He could demonstrate this when he moved from hyperflexion into extension the patella would jump laterally. He had no fever, chills or night sweats. Due to functional impairment and failure to improve with extensive conservative measures, the patient elected to proceed with surgical intervention. DESCRIPTION OF PROCEDURE: After risks and benefits of procedure were discussed and questions were answered and informed consent was signed and placed on chart, the operative site was confirmed in the preoperative holding area initialed by the surgeon. The patient was then transferred to the operating room and after adequate levels of general endotracheal anesthetic were obtained, a timeout was called, confirming the operative site. An examination under anesthesia was performed, which revealed range of motion 0/0/125 with no gross patellar laxity noted. No maltracking noted. The left lower extremity was then prepped and draped in the usual sterile fashion with the knee flexed, the tourniquet was inflated to 300 mmHg. The previous incision was utilized. Underlying soft tissues were carefully dissected. The previous arthrotomy was noted to be disrupted at the VMO area. The previous arthrotomy was used. A subperiosteal release was performed in the proximal medial tibia. A lateral release was performed from inside out. The patella was inspected and found to be stable. Under direct visualization, there was no maltracking noted. The patella stayed in the groove throughout range of motion. A strip of retinacular tissue was fashioned off the medial aspect of the arthrotomy. This was kept attached proximally, but then passed through a rent on the lateral aspect of the quadriceps tendon and then oversewn back on the VMO with #2 Tevdek. The VMO was then advanced distally and repaired in a geydv-xokf-nbjg fashion with excellent repair obtained. The remainder of the arthrotomy was closed with #2 Tevdek advancing it as closure occurred. The wound was irrigated with pulsatile lavage prior to closing the arthrotomy and cultures were obtained. After the repair had been performed, the knee was taken through range of motion. Full extension was easily obtained, 110 degrees of flexion was obtained. The patella tracked well with no undue tension at the repair site. The subcutaneous tissues were further irrigated using a total of 3 liters throughout the procedure. A 0 Vicryl was used to close the deep subcutaneous layer, 2-0 Vicryl for the superficial subcutaneous layer and meng used on the skin. The tourniquet was deflated after applying a soft dressing and brace and the patient was transferred to the recovery room awake and in stable condition. Job ID: [id number] DocumentID: [id number] Dictated Date: 04/26/2021 10:41:40 Child And Youth Program Assistant Date: 04/26/2021 16:41:56 Dictated By: ORION DESHPANDE MD
[2021-04-26] MEDS: SENNA W/DOCUSATE (SENOKOT S) TABLET PO SCH (22:21)
[2021-04-26] MEDS: CEFUROXIME INJECTION 750 MG in NS (IVPB) 50 ML IV SCH (22:21)
[2021-04-27] VITALS: BP 123/78
[2021-04-27] MEDS: NS IV 1000 ML 1,000 ML IV SCH (00:10)
[2021-04-27 04:00] VITALS: BP 135/78
[2021-04-27] MEDS: CEFUROXIME INJECTION 750 MG in NS (IVPB) 50 ML IV SCH (05:16)
[2021-04-27] MEDS ORDERED: MULTIVIT W/MINERALS TAB (THERAGRAN M) PO SCH (07:00)
--- NOTE | 2021-04-27 07:44 | Progress Note ---
Standard Progress Note Progress Notes/Assess & Plan Date Seen by a Provider: Apr 27, 2021 Time Seen by a Provider: 07:43 Progress/Assessment & Plan post op check no complaints radiographs HW well positioned without fracture LLE NVI distally mobilize as able Final Diagnosis no complaints Vital Signs Date Time Temp Pulse Resp B/P (MAP) Pulse Ox O2 Delivery O2 Flow Rate FiO2 04/27/21 04:00 38.6 113 20 135/78 (97) 92 NIV CPAP 1.00 04/27/21 00:00 37.8 89 20 123/78 (93) 92 NIV CPAP 1.00 04/26/21 19:41 37.2 91 20 127/73 (91) 94 NIV CPAP 1.00 04/26/21 19:00 94 Room Air 04/26/21 16:13 36.6 72 20 132/69 (90) 95 Nasal Cannula 1.00 04/26/21 15:28 Nasal Cannula 1.00 04/26/21 13:37 Nasal Cannula 2.00 04/26/21 12:00 36.4 74 20 132/76 (94) 90 Nasal Cannula 1.00 04/26/21 11:45 Nasal Cannula 1.5 04/26/21 11:40 36.2 14 153/91 (111) 92 Nasal Cannula 1.5 04/26/21 11:30 Nasal Cannula 1.5 04/26/21 11:30 14 143/86 (105) 92 Nasal Cannula 1.5 04/26/21 11:20 14 150/87 (108) 96 Nasal Cannula 1.5 04/26/21 11:15 OxyMask 2 04/26/21 11:10 14 148/93 (111) 97 Nasal Cannula 1.5 04/26/21 11:00 14 165/96 (119) 95 OxyMask 2 04/26/21 11:00 OxyMask 2 04/26/21 10:50 16 157/96 (116) 96 OxyMask 4 04/26/21 10:40 OxyMask 6 04/26/21 10:40 36.1 18 165/95 (118) 97 OxyMask 6 I & O 04/27/21 06:59 Intake Total 3530 ml Output Total 625 ml Balance 2905 ml LLE--intact DF and PF of toes and ankle 2 plus DP pulse sensation intact throughout s/p L patella realignment DC home WBAT in brace FU two weeks regular diet NEYDA DESHPANDE MD Apr 27, 2021 07:44
[2021-04-27] MEDS ORDERED: morphine INJ 4 MG/ML 1 ML (VIAL/SYRINGE) IVP PRN (07:45)
[2021-04-27] MEDS ORDERED: ENOXAPARIN 30 MG/0.3 ML (LOVENOX) SYR SC SCH (08:00)
[2021-04-27 08:10] VITALS: BP 139/81
[2021-04-27] MEDS ORDERED: ASPIRIN E.C. 81 MG (ECOTRIN) TAB PO SCH (09:00)
[2021-04-27] MEDS: SENNA W/DOCUSATE (SENOKOT S) TABLET PO SCH (09:24)
--- NOTE | 2021-04-27 09:52 | Physical Therapy Daily Note ---
PT Daily Note-Current Subjective Patient agrees to PT. He reports he is going home today. Mental Status Patient Orientation: Normal For Age Attachments: IV Transfers SCALE: Activities may be completed with or without assistive devices. 2-Ooijqvrxyi-pmdtgjg completes the activity by him/herself with no assistance from a helper. 5-Set-up or Clean-up Assistance-helper sets up or cleans up; patient completes activity. [place] assists only prior to or following the activity. 4-Supervision or Touching Assistance-helper provides verbal cues and/or touching/steadying and/or contact guard assistance as patient completes activity. Assistance may be provided throughout the activity or intermittently. 3-Partial/Moderate Assistance-helper does LESS THAN HALF the effort. [place] lifts, holds or supports trunk or limbs, but provides less than half the effort. 2-Substantial/Maximal Assistance-helper does MORE THAN HALF the effort. [place] lifts or holds trunk or limbs and provides more than half the effort. 1-Jzockrgec-gnkqos does ALL the effort. Patient does none of the effort to complete the activity. Or, the assistance of 2 or more helpers is required for the patient to complete the activity. If activity was not attempted, code reason: 7-Patient Refused. 9-Not Applicable-not attempted and the patient did not perform the activity before the current illness, exacerbation or injury. 10-Not Attempted due to Environmental Limitations-(lack of equipment, weather restraints, etc.). 88-Not Attempted due to Medical Conditions or Safety Concerns. Lying to Sitting/Side of Bed(Q: 6 Sit to Stand (QC): 6 Chair/Ecp-xo-Vebje Xfer(QC): 6 left knee immobilizer in place Weight Bearing Left Lower Extremity: Left Weight Bearing/Tolerated Left knee immobilizer locked at 60 degrees flexion Assessment Patient is independent with mobility and left knee immobilizer in place at all times. PT Snf Goals Snf Goals PT Sports Director Goals Time Frame: May 09, 2021 Roll Left & Right (QC): 6 Sit to Lying (QC): 6 Lying-Sitting on Side/Bed(QC): 6 Sit to Stand (QC): 6 Chair/Lqw-la-Ywnjh Xfer(QC): 6 Toilet Transfer (QC): 6 Does the Patient Walk: Yes Walk 10 feet (QC): 6 Walk 50ft with 2 Turns (QC): 6 Walk 150 ft (QC): 6 PT Plan Treatment/Plan Treatment Plan: Continue Plan of Care Treatment Plan: Bed Mobility, Education, Functional Activity Jeet, Functional Strength, Group Therapy, Gait, Safety, Therapeutic Exercise, Transfers Treatment Duration: Jun 07, 2021 Frequency: 7 times per week Estimated Hrs Per Day: .25 hour per day Patient and/or Family Agrees t: Yes Time/GCodes Time In: 740 Time Out: 750 Total Billed Treatment Time: 10 Total Billed Treatment 1 visit GT 10 min ASHLEIGH NASSAR PT Apr 27, 2021 09:52
--- NOTE | 2021-04-27 10:29 | Anesthesia-General Post-Op ---
General Patient Condition Mental Status/LOC: Same as Preop Cardiovascular: Satisfactory Nausea/Vomiting: Absent Respiratory: Satisfactory Pain: Controlled Complications: Absent Post Op Complications Complications None Follow Up Care/Instructions Patient Instructions None needed. Anesthesia/Patient Condition Patient Condition Patient is doing well, no complaints, stable vital signs, no apparent adverse anesthesia problems. No complications reported per nursing. KERON OWUSU CRNA Apr 27, 2021 10:29
--- NOTE | 2021-04-27 11:37 | Occ Therapy Progress Note ---
Therapy Progress Note OT orders received, pt discharged prior to OT evaluation. D/C from OT. HEMALATHA WADDELL OT Apr 27, 2021 11:37
== END 2021-04-27 10:47 | disposition home health service (06) | DRG 468 ==
LOC: 4TH 07:26 → SURG 07:27 → 4TH 11:16
PROVIDERS: ADMIT Orthopaedic Surgery; ATTEND Orthopaedic Surgery
PROC: 0SWD0JC Revision of Synthetic Substitute in Left Knee Joint, Patellar Surface, Open Approach (ICD-10-PCS; principal; 2021-04-26 09:07)
DX: T84.023A Instability of internal left knee prosthesis, initial encounter (principal); J44.9 Chronic obstructive pulmonary disease, unspecified; I10 Essential (primary) hypertension; G47.33 Obstructive sleep apnea (adult) (pediatric); E11.40 Type 2 diabetes mellitus with diabetic neuropathy, unspecified; Z87.891 Personal history of nicotine dependence; Z79.52 Long term (current) use of systemic steroids
CPT/HCPCS: 73560; 86850; 86900; 86901; 87070; 87075; 87205; 94664

== ENCOUNTER 2021-04-27 17:54 | Emergency (ER) | payer MEDICARE ==
[~2021-04-27] VITALS: Ht 175 cm; Wt 131.5 kg
[2021-04-27 18:05] VITALS: BP 170/109
--- NOTE | 2021-04-27 18:19 | ED Lower Extremity ---
General Stated Complaint: POST OP L KNEE INJ Source: patient Exam Limitations: no limitations History of Present Illness Date Seen by Provider: Apr 27, 2021 Time Seen by Provider: 18:05 Initial Comments Patient is a 60-year-old male who presents to the emergency department today with a chief complaint of increased left knee pain. He is status post knee jack rgery to "tighten his kneecap" (patellar realignment) yesterday by Dr. Monterroso. Patient states he was discharged home today and as he was getting out of the car and putting his leg down onto the pavement he felt a ripping tearing sensation in the knee and feels like the patella slid medially. Patient did not fall, had no leg weakness. Denies injuring himself. Has not taken off his knee immobilizer or dressings. He states he called up to Dr Monterroso's office and 'Anny' told him to come on up to the ER for us to evaluate him and call Dr Monterroso. No complaints of hip or ankle pain. Did take one of his Percocet prior to arrival. No other complaints this evening. Onset: just prior to arrival Pain/Injury Location: left knee Method of Injury: twisted Modifying Factors: Improves With Cold Therapy, Improves With Immobilization, Improves With Pain Medication Allergies and Home Medications Allergies Coded Allergies: No Known Drug Allergies (Unverified , 10/06/18) Patient Home Medication List Home Medication List Reviewed: Yes Albuterol Sulfate (Proair Hfa) 1 Puff Puff, 2 PUFF IH Q4H PRN for WHEEZING, (Reported) Entered as Reported by: JERRY BENITEZ on 01/18/21 1323 Ascorbate Calcium (Vitamin C) 500 Mg Tablet, 500 MG PO DAILY, (Reported) Entered as Reported by: JERRY BENITEZ on 01/18/21 1323 Aspirin (Aspirin) 81 Mg Tab.chew, 81 MG PO DAILY, (Reported) Entered as Reported by: JERRY BENITEZ on 01/18/21 1323 Budesonide/Formoterol Fumarate (Symbicort 160-4.5 Mcg Inhaler) 10.2 Gm Hfa.aer.ad, 2 PUFF IH BID, (Reported) Entered as Reported by: JERRY BENITEZ on 01/18/21 1323 Gabapentin (Gabapentin) 100 Mg Capsule, 100 MG PO HS, (Reported) Entered as Reported by: JERRY BENITEZ on 01/18/21 1323 Lactobacill 46/B.animal/Inulin (Probiotic-10 10 Bill Cell Cap) 1 Each Capsule, 1 EACH PO DAILY, (Reported) Entered as Reported by: JERRY BENITEZ on 01/18/21 1323 Levalbuterol HCl (Levalbuterol HCl) 0.63 Mg/3 Ml Vial.neb, 0.63 MG IH Q4H PRN for SHORTNESS OF BREATH, (Reported) Entered as Reported by: JERRY BENITEZ on 01/18/21 1323 Multivit-Min/Folic/Vit K/Lycop (Men's 50 Plus Multivitamin Tab) 1 Each Tablet, 1 EACH PO DAILY, (Reported) Entered as Reported by: JERRY BENITEZ on 04/21/19 1316 [place] 3 Polyunsat Fatty Acids (Fish Oil 1,000 mg Capsule) 1,000 Mg Cap, 1,000 MG PO DAILY, (Reported) Entered as Reported by: JERRY BENITEZ on 04/21/19 1316 Psyllium Husk (Metamucil) 0.52 Gm Capsule, 0.52 GM PO DAILY PRN for CONSTIPATION-1ST LINE, (Reported) Entered as Reported by: JERRY BENITEZ on 01/18/21 1323 Tiotropium [place] (Spiriva) 1 Inh Aerp, 1 INH IH DAILY, (Reported) Entered as Reported by: JERRY BENITEZ on 01/18/21 1323 Vitamin A/Vit C/Zinc/Propolis (Zinc 15 mg Lozenges) 15 Mg Lozenge, 15 MG PO DAILY, (Reported) Entered as Reported by: JERRY BENITEZ on 01/18/21 1323 Review of Systems Constitutional: no symptoms reported EENTM: no symptoms reported Respiratory: no symptoms reported Cardiovascular: no symptoms reported Gastrointestinal: no symptoms reported Genitourinary: no symptoms reported Musculoskeletal: joint pain (left knee) Skin: no symptoms reported All Other Systems Reviewed Negative Unless Noted: Yes Past Qxxfwub-Xzfomc-Loaanw Hx Immunizations Up To Date First/Initial COVID19 Vaccinat: IST OF OCTOBER 2020 Second COVID19 Vaccination Caleb: END OF OCTOBER 2020 Third COVID19 Vaccination Date: IST OF OCTOBER 2020 Seasonal Allergies Seasonal Allergies: Yes Past Medical History Surgery/Hospitalization HX: LEFT TOTAL KNEE REPLACEMENT Surgeries: Yes (bilat ing hernia sx, lipoma removed, umb hernia during lap candice, knee scop) Gallbladder, Vasectomy Respiratory: Yes Sleep Apnea, COPD, Emphysema Currently Using CPAP: Yes Currently Using BIPAP: No Cardiac: No Neurological: Yes Neuropathy Genitourinary: No Gastrointestinal: Yes Chronic Constipation Musculoskeletal: Yes (left patella recurrent subluxation) Arthritis Endocrine: No HEENT: No Cancer: No Psychosocial: No Integumentary: No Blood Disorders: No Family Medical History No Pertinent Family Hx Physical Exam Vital Signs Capillary Refill : Height, Weight, BMI Height: '" Weight: lbs. oz. kg; 42.82 BMI Method: General Appearance: WD/WN, no apparent distress Neck: normal inspection Cardiovascular: regular rate, rhythm Respiratory: lungs clear, normal breath sounds, no respiratory distress, no accessory muscle use Gastrointestinal: normal bowel sounds, non tender, soft Hips: bilateral hip non-tender, bilateral hip normal inspection, bilateral hip normal range of motion Legs: bilateral leg non-tender, bilateral leg normal inspection, bilateral leg normal range of motion; left leg swelling Knees: bilateral knee other (post operative dressing in place left knee; good distal pulses 2+; cap refill is brisk; able to wiggle toes and good ROM of ankle; knee dressing kept in place with hose on) Ankles: bilateral ankle non-tender, bilateral ankle normal inspection, bilateral ankle normal range of motion; left ankle swelling (mild) Feet: bilateral foot non-tender, bilateral foot normal inspection, bilateral foot normal range of motion, bilateral foot no evidence of injury Neurologic/Tendon: normal sensation, normal motor functions Neurologic/Psychiatric: alert, normal mood/affect, oriented x 3 Skin: normal color, warm/dry Progress/Results/Core Measures Progress Progress Note : Time: 18:22 Progress Note Discussed with Dr Monterroso, He said as long as he didnt fall and was wearing his brace and there is no disruption of the sutures, the knee will be fine. He said to keep his follow up in the office for 2 weeks. The dressing is intact; no bleeding DIstal NVI. WIll replace the cool pack and the brace. Departure Impression Primary Impression: Postoperative pain of left knee Disposition: 01 HOME, SELF-CARE Condition: Stable Departure-Patient Inst. Decision time for Depature: 18:24 Referrals: NO,LOCAL PHYSICIAN (PCP) Primary Care Physician MADINA PORTER APRN (Family) Primary Care Physician NEYDA MONTERROSO MD Patient Instructions: Acute Pain, Adult (DC) Add. Discharge Instructions: Keep the brace and cooling pack in place as instructed in your post operative instructions. Elevate to lessen swelling. Keep your follow up with Dr Monterroso as scheduled. You can call his office tomorrow with any further questions. Return to the Emergency Department for any new, concerning or emergent complaints. Copy Copies To 1: NEYDA MONTERROSO MD, KATHRYN M MD Apr 27, 2021 18:19
== END 2021-04-27 18:46 | disposition home or self-care (01) ==
LOC: EDUNIT# 17:54 → ER 17:55
DX: G89.18 Other acute postprocedural pain (principal); M25.562 Pain in left knee; G47.30 Sleep apnea, unspecified; J44.9 Chronic obstructive pulmonary disease, unspecified; Z79.82 Long term (current) use of aspirin
CPT/HCPCS: 99281

== ENCOUNTER 2021-07-25 09:28 | Outpatient (CLI) | payer MEDICARE ==
[~2021-07-25] VITALS: Ht 175.3 cm; Wt 128.6 kg
[2021-07-25] MEDS ORDERED: [UNRECOGNIZED DRUG - OTHER] (10:57)
[2021-07-25] MEDS ORDERED: IBUP-2473 PO (10:57)
[2021-07-26] MEDS ORDERED: MULT200T14 PO (16:05)
[2021-07-26] MEDS ORDERED: METH-336 PO (16:05)
[2021-07-26] MEDS ORDERED: LACT1TAB25 PO (16:05)
[2021-07-26] MEDS ORDERED: MV-M1TAB28 PO (16:05)
[2021-07-26] MEDS ORDERED: [UNRECOGNIZED DRUG - CODE] PO (16:05)
== END 2021-07-25 11:21 | disposition home or self-care (01) ==
LOC: PREOP 09:28
PROVIDERS: ATTEND Orthopaedic Surgery
DX: Z01.818 Encounter for other preprocedural examination (principal)

== ENCOUNTER 2021-07-26 08:40 | Day surgery (SDC) | payer MEDICARE ==
[~2021-07-26] VITALS: Ht 175.3 cm; Wt 128.6 kg
[2021-07-26] VITALS (11 sets, daily range): BP systolic 126–149; BP diastolic 79–91
--- NOTE | 2021-07-26 06:46 | HISTORY AND PHYSICAL ---
DATE OF SERVICE: ADMISSION HISTORY AND PHYSICAL This will be for inpatient admission on 07/26/2021. PREOPERATIVE DIAGNOSIS: Left patellar tendon disruption, status post total knee arthroplasty. POSTOPERATIVE DIAGNOSIS: Left patellar tendon disruption, status post total knee arthroplasty. HISTORY OF PRESENT ILLNESS: The patient is a 60-year-old gentleman who previously underwent left total knee arthroplasty, had patellar instability and underwent a soft tissue realignment procedure and has been doing well until about two weeks ago when he sustained a hyperflexion injury to his knee and since then has been unable to fully extend the knee. He reports instability with ambulation. Radiographs revealed elevated patella without disruption of his components. REVIEW OF SYSTEMS: No recent chest pain, shortness of breath or dysuria. PAST MEDICAL HISTORY: Allergic rhinitis, Chronic obstructive pulmonary disease, diabetes, hypertension, umbilical hernia and emphysema. PAST SURGICAL HISTORY: Cholecystectomy, left knee. FAMILY HISTORY: Noncontributory. PRIMARY CARE PROVIDER: Kat Christopher. MEDICATIONS: Fludrocortisone, albuterol, Advair, sildenafil, prednisone, omeprazole, nitroglycerin, montelukast, lisinopril, levalbuterol, hydrocodone. ALLERGIES: No known drug allergies. SOCIAL HISTORY: The patient denies alcohol use. He is a former smoker. PHYSICAL EXAMINATION: GENERAL: The patient is well-developed, well-nourished, in no acute distress. HEENT: Normocephalic, atraumatic. Pupils are equal, round, reactive to light. Oropharynx is clear. NECK: Supple, no lymphadenopathy. LUNGS: Clear to auscultation bilaterally. HEART: Regular rate and rhythm. ABDOMEN: Soft, nontender, nondistended. EXTREMITIES: The left knee demonstrates a palpable defect at the inferior pole of his patella. He can extend his knee to about 30 degrees. He is unable to maintain full extension with quadriceps contraction. The patella moved superiorly with no movement of the tibia. IMPRESSION: Left patellar tendon disruption. PLAN: Left patellar tendon repair. The risks, benefits, options, ramifications and recovery were discussed at length with the patient. He understands and wishes to proceed. Job ID: [id number] DocumentID: [id number] Dictated Date: 07/24/2021 15:36:23 Diagnostic Technician Date: 07/24/2021 16:01:57 Dictated By: NEYDA DESHPANDE MD
[~2021-07-26 08:40] MED LIST changes: +IBUP-2473 PO; +NALOXONE 0.4 MG/ML 1 ML (NARCAN) VIAL IV PRN; +ONDANSETRON 4 MG/2 ML (SDV) Z0FRAN IVP PRN; +[UNRECOGNIZED DRUG - OTHER]; +diphenhydrAMINE 50 MG/ML INJ (BENADRYL) IVP PRN; +morphine INJ 4 MG/ML 1 ML (VIAL/SYRINGE) IVP PRN
[2021-07-26] MEDS ORDERED: ceFAZolin 2 GM IV Premixed 50 ML IV ONE (09:00)
--- NOTE | 2021-07-26 09:33 | Progress Note-Post Operative ---
Post-Operative Progess Note Surgeon (s)/Terrazzo Mechanic Helper (s) Surgeon NEYDA DESHPANDE MD Terrazzo Mechanic Helper: Barry Sparks Pre-Operative Diagnosis left patella tendon tear Post-Operative Diagnosis left patella tendon tear Procedure & Operative Findings Date of Procedure 07/26/21 Procedure Performed/Findings left patella tendon repair Anesthesia Type GETA Estimated Blood Loss Estimated blood loss (mL): 50 ml Specimens/Packing Specimens Removed none Packing: none NEYDA DESHPANDE MD Jul 26, 2021 09:33
--- NOTE | 2021-07-26 09:33 | Progress Note-Pre Operative ---
Pre-Operative Progress Note H&P Reviewed The H&P was reviewed, patient examined and no changes noted. Date Seen by Provider: Jul 26, 2021 Time Seen by Provider: 09:20 Date H&P Reviewed: Jul 26, 2021 Time H&P Reviewed: 07:11 Pre-Operative Diagnosis: left patella tendon tear NEYDA DESHPANDE MD Jul 26, 2021 09:33
[2021-07-26] MEDS ORDERED: LACTATED RINGERS 1,000 ML IV PRN (10:00)
[2021-07-26] MEDS ORDERED: ONDANSETRON 4 MG/2 ML (SDV) Z0FRAN ONE (10:16)
[2021-07-26] MEDS ORDERED: LIDOCAINE PF 2% 5 ML (XYLOCAINE) VIAL ONE (10:16)
[2021-07-26] MEDS ORDERED: proPOfol 200 MG/20 ML (DIPRIVAN) VIAL IV ONE (10:16)
[2021-07-26] MEDS ORDERED: MIDAZOLAM 2 MG/2 ML (VERSED) VIAL ONE (10:17)
[2021-07-26] MEDS ORDERED: fentaNYL INJ 100 MCG/2 ML AMP ONE (10:17)
[2021-07-26] MEDS ORDERED: SEVOFLURANE (ULTANE) 15 ML INHAL SOLN ONE (11:39)
[2021-07-26] MEDS ORDERED: MEPERIDINE (DEMEROL) INJ 50 MG/ML IVP ONE (11:45)
[2021-07-26] MEDS ORDERED: morphine INJ 10 MG/ML 1ML (SYR OR VIAL) IVP ONE (11:45)
[2021-07-26] MEDS ORDERED: ONDANSETRON 4 MG/2 ML (SDV) Z0FRAN IVP PRN (11:45)
[2021-07-26] MEDS ORDERED: PROMETHAZINE INJ 25 MG/ML (PHENERGAN) AMP IVP ONE (11:45)
[2021-07-26] MEDS ORDERED: HYDROmorphone 2 MG/ML VIAL (DILAUDID) IV ONE (11:45)
--- NOTE | 2021-07-26 12:20 | Anesthesia-General Post-Op ---
General Patient Condition Mental Status/LOC: Same as Preop Cardiovascular: Satisfactory Nausea/Vomiting: Absent Respiratory: Satisfactory Pain: Controlled Complications: Absent Post Op Complications Complications None Follow Up Care/Instructions Patient Instructions None needed. Anesthesia/Patient Condition Patient Condition Patient is doing well, no complaints, stable vital signs, no apparent adverse anesthesia problems. No complications reported per nursing. ARACELIS MCINTOSH CRNA Jul 26, 2021 12:20
[2021-07-26] MEDS: oxyCODONE/APAP 5/325MG (PERCOCET 5) TABLET PO PRN ×3 (14:33→21:33)
--- NOTE | 2021-07-26 14:47 | OPERATIVE REPORT ---
DATE OF SERVICE: 07/26/2021 PREOPERATIVE DIAGNOSIS: Left patellar tendon disruption. POSTOPERATIVE DIAGNOSIS: Left patellar tendon disruption. PROCEDURE: Left patellar tendon repair. SURGEON: Orion Monterroso MD PROJECTOR BOOTH OPERATOR: Barry Sparks, who assisted throughout the procedure and closed the incision. ANESTHESIA: General endotracheal by Madhu Steen CRNA. TOURNIQUET TIME: 31 minutes at 300 mmHg. ESTIMATED BLOOD LOSS: 50 mL. DRAINS: None. COMPLICATIONS: None. POSTOPERATIVE PLAN: 0 to 30 degrees range of motion for 2 weeks followed by 0 to 90 degrees for an additional 2 weeks. The patient can weightbear as tolerated. The patient was transferred to the recovery room awake and stable condition. STATEMENT OF MEDICAL NECESSITY: The patient is a 60-year-old gentleman who previously underwent patellar realignment soft tissue procedure for patellar instability following a total knee arthroplasty was doing well until he fell about two weeks ago and since then reports he has been unable to fully extend his knee. On exam, clinically with quadriceps contraction, the patella moves superiorly, but he was unable to maintain full extension. It was felt that he likely had disruption of the patellar tendon. It was felt that there was a defect in the area, due to functional impairment, the patient elected to proceed with surgical intervention. DESCRIPTION OF PROCEDURE: After risks and benefits of procedure were discussed and questions were answered, an informed consent was signed and placed on chart, the operative site was confirmed in the preoperative holding area initialed by the surgeon. The patient was then transferred to the operating room and after adequate levels of general endotracheal anesthetic were obtained, a timeout was called, confirming the operative site. The left lower extremity was prepped and draped in the usual sterile fashion with the leg elevated, tourniquet was inflated to 300 mmHg. The previous incision was utilized. The underlying soft tissues were carefully dissected. There was a longitudinal disruption of the lateral aspect of the patellar tendon from the inferior pole extending distally. The remainder of the patella tendon was intact. The previous repair was intact as well. This was closely inspected visually and through palpation to ensure that the distal aspect of the tendon was intact, and the proximal aspect was intact palpably and under visualization, the longitudinal split was repaired with #5 Tevdek in ujcoyk-cp-spwzy interrupted fashion. The knee was flexed. The patella tracked well with no subluxation noted and no undue tension noted at the repair site. The wound was copiously irrigated, and tourniquet was deflated for a total tourniquet time of 31 minutes, 0 Vicryl was used for deep subcutaneous tissue, 2-0 Vicryl for the superficial subcutaneous tissue, meng used on the skin. A soft dressing was applied. The patient was transferred to the recovery room awake and in stable condition. Job ID: [id number] DocumentID: [id number] Dictated Date: 07/26/2021 11:46:50 Sock Drier Date: 07/26/2021 14:45:31 Dictated By: ORION MONTERROSO MD
[2021-07-26] MEDS ORDERED: METH-336 PO (16:05)
[2021-07-26] MEDS ORDERED: [UNRECOGNIZED DRUG - CODE] PO (16:05)
[2021-07-26] MEDS ORDERED: MULT200T14 PO (16:05)
[2021-07-26] MEDS ORDERED: MV-M1TAB28 PO (16:05)
[2021-07-26] MEDS ORDERED: LACT1TAB25 PO (16:05)
[2021-07-26] MEDS: ceFAZolin 2 GM IV Premixed 50 ML IV SCH (18:02)
[2021-07-26] MEDS ORDERED: GABAPENTIN 100 MG (NEURONTIN) CAP PO SCH (21:00)
[2021-07-27 00:30] VITALS: BP 127/79
[2021-07-27] MEDS: ceFAZolin 2 GM IV Premixed 50 ML IV SCH (02:23)
[2021-07-27] MEDS: oxyCODONE/APAP 5/325MG (PERCOCET 5) TABLET PO PRN ×2 (02:27→10:15)
[2021-07-27 04:12] VITALS: BP 113/69
[2021-07-27] MEDS ORDERED: ENOXAPARIN 30 MG/0.3 ML (LOVENOX) SYR SC SCH (07:30)
--- NOTE | 2021-07-27 07:41 | Progress Note ---
Standard Progress Note Progress Notes/Assess & Plan Date Seen by a Provider: Jul 27, 2021 Time Seen by a Provider: 07:40 Progress/Assessment & Plan doing well without complaints Vital Signs Date Time Temp Pulse Resp B/P (MAP) Pulse Ox O2 Delivery O2 Flow Rate FiO2 07/27/21 04:12 36.8 93 20 113/69 (84) 94 NIV CPAP 07/27/21 00:30 37.8 98 20 127/79 (95) 95 NIV CPAP 07/26/21 19:20 37.7 89 20 126/79 (95) 93 Room Air 07/26/21 15:49 36.5 79 18 146/90 (108) 94 Room Air 07/26/21 15:38 Room Air 07/26/21 12:44 36.6 70 20 131/79 (96) 95 Room Air 07/26/21 12:40 Room Air 07/26/21 12:40 36.6 20 133/87 (102) 87 Room Air 07/26/21 12:30 20 133/87 (102) 96 Room Air 07/26/21 12:30 Room Air 07/26/21 12:20 36.7 20 133/87 (102) 97 Room Air 07/26/21 12:15 Room Air 07/26/21 12:10 20 127/82 (97) 96 OxyMask 2 07/26/21 12:00 OxyMask 3 07/26/21 12:00 20 143/85 (104) 100 OxyMask 3 07/26/21 11:50 20 143/86 (105) 100 OxyMask 6 07/26/21 11:45 OxyMask 6 07/26/21 11:41 OxyMask 6 07/26/21 11:41 36.7 20 141/85 (103) 100 OxyMask 6 07/26/21 09:30 36.1 74 20 149/91 (110) 95 Room Air I & O 07/27/21 07:00 Intake Total 1450 ml Output Total 600 ml Balance 850 ml LLE--dressing and brace in place NVI distally able to perform SLR s/p L patella tendon repair DC home WBAT regular diet FU two weeks NEYDA DESHPANDE MD Jul 27, 2021 07:41
[2021-07-27 08:06] VITALS: BP 148/76
[2021-07-27 10:30] VITALS: BP 148/76
== END 2021-07-27 10:34 | disposition home or self-care (01) ==
LOC: SDC 08:40 → 4TH 13:14 → SDC 07-27 10:34
PROVIDERS: ATTEND Orthopaedic Surgery
DX: M67.8 Other specified disorders of synovium and tendon (principal); I10 Essential (primary) hypertension; J30.9 Allergic rhinitis, unspecified; E11.9 Type 2 diabetes mellitus without complications; J44.1 Chronic obstructive pulmonary disease with (acute) exacerbation; Z79.899 Other long term (current) drug therapy; Z96.652 Presence of left artificial knee joint; Z90.49 Acquired absence of other specified parts of digestive tract; Z79.891 Long term (current) use of opiate analgesic
CPT/HCPCS: 87081; 94664

== ENCOUNTER 2021-09-03 17:26 | Emergency (ER) | payer MEDICARE ==
[~2021-09-03 17:26] MED LIST changes: +LACT1TAB25 PO; +METH-336 PO; +MULT200T14 PO; +MV-M1TAB28 PO; -NALOXONE 0.4 MG/ML 1 ML (NARCAN) VIAL IV PRN; -ONDANSETRON 4 MG/2 ML (SDV) Z0FRAN IVP PRN; +[UNRECOGNIZED DRUG - CODE] PO; -diphenhydrAMINE 50 MG/ML INJ (BENADRYL) IVP PRN; -morphine INJ 4 MG/ML 1 ML (VIAL/SYRINGE) IVP PRN
--- NOTE | 2021-09-03 17:36 | ED Lower Extremity ---
General Chief Complaint: Lower Extremity Stated Complaint: LEFT FOOT SWELLING/PAIN History of Present Illness Date Seen by Provider: Sep 03, 2021 Time Seen by Provider: 17:36 Initial Comments 60-year-old male sent here from urgent care for ankle swelling on the left side. Pt states that it was a soft swelling which his palpated and thereafter became larger, and then after a few minutes it disappeared. Patient just had a recent left knee surgery 5 weeks ago. Patient has some edema on his left leg and some pain. Denies fever, SOB, chest pain, injuries, falls, or misstep. Allergies and Home Medications Allergies Coded Allergies: No Known Drug Allergies (Unverified , 10/06/18) Patient Home Medication List Home Medication List Reviewed: Yes Albuterol Sulfate (Proair Hfa) 1 Puff Puff, 2 PUFF IH Q4H PRN for SHORTNESS OF BREATH, (Reported) Entered as Reported by: JERRY BENITEZ on 01/18/21 1323 Ascorbate Calcium (Vitamin C) 500 Mg Tablet, 500 MG PO DAILY, (Reported) Entered as Reported by: JERRY BENITEZ on 01/18/21 1323 Aspirin (Aspirin) 81 Mg Tab.chew, 81 MG PO DAILY, (Reported) Entered as Reported by: JERRY BENITEZ on 01/18/21 1323 Budesonide/Formoterol Fumarate (Symbicort 160-4.5 Mcg Inhaler) 10.2 Gm Hfa.aer.ad, 2 PUFF IH BID, (Reported) Entered as Reported by: JERRY BENITEZ on 01/18/21 1323 Folic Acid/Multivit-Minerals (Men's Multivitamin Gummies) 200 Mcg Tab.chew, 400 MCG PO DAILY, (Reported) Entered as Reported by: SUMI LOCKWOOD on 07/26/21 1605 Gabapentin (Gabapentin) 100 Mg Capsule, 100 MG PO HS, (Reported) Entered as Reported by: JERRY BENITEZ on 01/18/21 1323 Ibuprofen (Ibuprofen) 200 Mg Tablet, 400 MG PO HS, (Reported) Entered as Reported by: GALINA RUBIO on 07/25/21 1057 Lactobacillus Acidophilus (Probiotic Acidophilus) 1 Each Tablet, 1 EACH PO DAILY, (Reported) Entered as Reported by: SUMI LOCKWOOD on 07/26/21 1605 Levalbuterol HCl (Levalbuterol HCl) 0.63 Mg/3 Ml Vial.neb, 0.63 MG IH Q4H PRN for SHORTNESS OF BREATH, (Reported) Entered as Reported by: JERRY BENITEZ on 01/18/21 1323 Methylcellulose (Fiber) 500 Mg Tablet, 500 MG PO UD PRN for USE WITH DAIRY PRODU CTS, (Reported) Entered as Reported by: SUMI LOCKWOOD on 07/26/21 1605 Mv-Mn/Vitc/Asbna/Glu/Marine/Hc124 (Airborne Gummies) 1 Each Tab.chew, 1 EACH PO DAILY, (Reported) Entered as Reported by: SUMI LOCKWOOD on 07/26/21 1605 [place] 3 Polyunsat Fatty Acids (Fish Oil 1,000 mg Capsule) 1,000 Mg Cap, 1,000 MG PO DAILY, (Reported) Entered as Reported by: JERRY BENITEZ on 04/21/19 1316 Tiotropium [place] (Spiriva) 1 Inh Aerp, 1 INH IH DAILY, (Reported) Entered as Reported by: JERRY BENITEZ on 01/18/21 1323 Zinc/Ascorbic Acid/Pyridoxine (Zinc-Vitamin C-B6 Lozenge) 1 Each Lozenge, 1 EACH PO DAILY, (Reported) Entered as Reported by: SUMI LOCKWOOD on 07/26/21 1605 Review of Systems Constitutional: no symptoms reported EENTM: no symptoms reported Respiratory: no symptoms reported Cardiovascular: no symptoms reported Gastrointestinal: no symptoms reported Genitourinary: no symptoms reported Musculoskeletal: other (left ankle swelling and pain) Skin: no symptoms reported Psychiatric/Neurological: No Symptoms Reported Past Luyrfee-Cekpoa-Ljxqzr Hx Immunizations Up To Date First/Initial COVID19 Vaccinat: IST OF OCTOBER 2020 Second COVID19 Vaccination Caleb: END OF OCTOBER 2020 Third COVID19 Vaccination Date: IST OF OCTOBER 2020 Seasonal Allergies Seasonal Allergies: Yes Past Medical History Surgery/Hospitalization HX: LEFT TOTAL KNEE REPLACEMENT JAN 2021, L KNEE SURGERY APR 2021 Surgeries: Yes (bilat ing hernia sx, lipoma removed, umb hernia during lap candice, knee scop) Gallbladder, Vasectomy Respiratory: Yes Sleep Apnea, COPD, Emphysema Currently Using CPAP: No Currently Using BIPAP: No Cardiac: No Neurological: Yes Neuropathy Genitourinary: No Gastrointestinal: Yes Chronic Constipation Musculoskeletal: Yes (left patella recurrent subluxation) Arthritis Endocrine: No HEENT: No Cancer: No Psychosocial: No Integumentary: No Blood Disorders: No Family Medical History No Pertinent Family Hx Physical Exam Vital Signs Vital Signs - First Documented 09/03/21 17:34 Temp 36.9 Pulse 101 Resp 14 B/P (MAP) 171/97 (121) Pulse Ox 95 O2 Delivery Room Air Capillary Refill : Height, Weight, BMI Height: '" Weight: lbs. oz. kg; 41.84 BMI Method: General Appearance: no apparent distress Legs: left leg normal range of motion, left leg no evidence of injury Knees: bilateral knee other (surgical scar over left knee) Ankles: left ankle normal range of motion, left ankle no evidence of injury, left ankle soft tissue tenderness, left ankle other (no swelling seen at site of tenderness at this time, however pedal edeam, pitting, is seen, up to knee, with mild erythema.) Neurologic/Tendon: normal sensation, normal motor functions, no evidence tendon injury Neurologic/Psychiatric: no motor/sensory deficits, alert, normal mood/affect, oriented x 3 Progress/Results/Core Measures Results/Orders Lab Results Laboratory Tests Test 09/03/21 17:57 Range/Units D-Dimer 1.12 H 0.00-0.49 UG/ML My Orders Orders - LINDA HODGE MD Ankle 3 View Left (09/03/21 17:42) Fibrin Degradation Products (09/03/21 17:50) Enoxaparin Injection (Lovenox Injection) (09/03/21 18:45) Protime With Inr (09/03/21 18:39) Medications Given in ED Current Medications Medications Dose Ordered Sig/Segun Route Start Time Stop Time Status Last Admin Dose Admin Enoxaparin Sodium 128 mg ONCE ONCE SC 09/03/21 18:45 09/03/21 18:46 09/03/21 18:36 128 MG Vital Signs/I&O 09/03/21 09/03/21 17:34 18:39 Temp 36.9 36.9 Pulse 101 101 Resp 14 14 B/P (MAP) 171/97 (121) 171/97 Pulse Ox 95 95 O2 Delivery Room Air Room Air Progress Progress Note : Progress Note 1. LEFT ANKLE SWELLING:ELEVATED D-DIMER: - D-dimer ordered to screen for clot, with D-dimer elevated to >1.12 - No u/s available here or in [place] on a weekend at this time. Will give Lovenox s.c. 1mg/kg, for total of 128mg STAT in ER, and advise pt to go to ER for doppler u/s first thing in the morning. If positive, pt will then be able to get prescription and continue Lovenox tomorrow morning, and Warfarin needs to be started within 72 hours of starting Lovenox. Pt agrees to plan. No chest pain, SOB, palpitations at this time. - X-ray left ankle:unremarkable -The patient was seen in the ED, and treated appropriately to presentation at a specific point in time. Patient is informed that there is a possibility that disease and illness can evolve and change in acuity rapidly or slowly after patient is discharged from the ER. Precautionary advice given to the patient for immediate return to ER if symptoms worsen or do not resolve, and to seek emergency care sooner rather than later. Pt also advised on the importance of PCP follow up and compliance with management and follow up plan. Pt verbally expressed understanding. Diagnostic Imaging Diagonstic Imaging: Xray Comments [facility], [place] NAME: AMERICA RAMIREZ [facility] REC#: [id number] PT STATUS: REG ER : 1960 PHYSICIAN: LINDA HODGE MD ADMIT DATE: 09/03/21/ER FS Signed Date of Exam:09/03/21 ANKLE 3 VIEW LEFT CLINICAL HISTORY: Medial ankle pain. COMPARISON: None. TECHNIQUE: 3 views of the left ankle. FINDINGS: There is no acute fracture or dislocation of the left ankle. Alignment is anatomic. Old avulsion fractures are noted in the lateral and medial malleolus. The left ankle demonstrates normal alignment. No focal osseous lesion. No soft tissue edema is seen. IMPRESSION: 1. No acute fracture or dislocation in the left ankle. 2. Old avulsion fractures involving the medial and lateral malleoli. Dictated by: Dictated on workstation # [id number] Dict: 09/03/21 [id number] Trans: [id number] [facility] [id number] Interpreted by: CARMENCITA NANCE DO Electronically signed by: CARMENCITA NANCE DO 09/03/211801 Departure Impression Primary Impression: Left ankle swelling Additional Impressions: Elevated d-dimer Recent surgical procedure on lower extremity Disposition: HOME, SELF-CARE Condition: Stable Departure-Patient Inst. Referrals: MADINA PORTER APRN (PCP/Family) Primary Care Physician Patient Instructions: Deep Vein Thrombosis (Blood Clots in the Legs) (DC) Add. Discharge Instructions: F/u in ER first thing tomorrow morning for doppler ultrasound, and for continued management as needed. - Advised to return to ER immediately if SOB, chest pain, palpitations develop. -The patient was seen in the ED, and treated appropriately to presentation at a specific point in time. Patient is informed that there is a possibility that disease and illness can evolve and change in acuity rapidly or slowly after patient is discharged from the ER. Precautionary advice given to the patient for immediate return to ER if symptoms worsen or do not resolve, and to seek emergency care sooner rather than later. Pt also advised on the importance of PCP follow up and compliance with management and follow up plan. Pt verbally expressed understanding. All discharge instructions reviewed with patient and/or family. Voiced understanding. LINDA HODGE MD Sep 03, 2021 17:36
--- NOTE | 2021-09-03 18:03 | Diagnostic Imaging Report ---
CLINICAL HISTORY: Medial ankle pain. COMPARISON: None. TECHNIQUE: 3 views of the left ankle. FINDINGS: There is no acute fracture or dislocation of the left ankle. Alignment is anatomic. Old avulsion fractures are noted in the lateral and medial malleolus. The left ankle demonstrates normal alignment. No focal osseous lesion. No soft tissue edema is seen. IMPRESSION: 1. No acute fracture or dislocation in the left ankle. 2. Old avulsion fractures involving the medial and lateral malleoli. Dictated by: Dictated on workstation # [id number]
[2021-09-03 18:39] VITALS: BP 171/97
[2021-09-03] MEDS ORDERED: ENOXAPARIN 100 MG/1 ML (LOVENOX) SYR SC ONE (18:45)
[2021-09-03 18:47] LABS: INR 0.9 (0.8-1.4); PROTHROMBIN TIME PATIENT 12.5 SEC (12.2-14.7)
== END 2021-09-03 18:40 | disposition home or self-care (01) ==
LOC: EDUNIT# 17:26 → ER FS 17:27
DX: R60.9 Edema, unspecified (principal); R79.1 Abnormal coagulation profile
CPT/HCPCS: 36415; 73610; 85379; 85610

== ENCOUNTER → 2021-09-26 | Outpatient (CLI) | payer MEDICARE ==
--- NOTE | 2021-09-26 14:33 | Diagnostic Imaging Report ---
EXAMINATION: Chest, 2 views. HISTORY: COPD exacerbation. COMPARISON: 01/18/2021. FINDINGS: Heart size and pulmonary vasculature are normal. The lungs are clear without consolidation, pleural effusion, or pneumothorax. Degenerative changes of the thoracic spine. Osseous structures are otherwise intact. IMPRESSION: No acute radiographic abnormality in the chest. Dictated by: Dictated on workstation # [id number]
== END ==
LOC: RAD FS 13:34
PROVIDERS: ATTEND Nurse Practitioner Family
DX: J44.1 Chronic obstructive pulmonary disease with (acute) exacerbation (principal)
CPT/HCPCS: 71046

== ENCOUNTER → 2021-10-25 | Outpatient (CLI) | payer MEDICARE ==
--- NOTE | 2021-10-25 12:46 | Diagnostic Imaging Report ---
EXAMINATION: CT chest without contrast (lung screening). TECHNIQUE: Multiple contiguous axial images were obtained through the chest without the use of intravenous contrast according to lung cancer screening protocol. All CT scans use one or more of the following dose optimizing techniques: automated exposure control, MA and/or KvP adjustment based on patient size and exam type or iterative reconstruction. HISTORY: 40 pack year history of smoking. COMPARISON: 07/16/2020 FINDINGS: Thyroid: The thyroid is normal. Mediastinum: Heart size is normal without significant pericardial effusion. The aorta is normal in caliber. No suspicious lymphadenopathy. Lungs and airways: No consolidation, pleural effusion, or pneumothorax. No suspicious pulmonary nodule. The airways are normal. Upper abdomen: The subphrenic structures are normal. Musculoskeletal: No suspicious osseous lesion or compression fracture. IMPRESSION: 1. No suspicious pulmonary nodules. Recommend continued annual low-dose CT screening. LUNG-RADS CATEGORY: 1 MODIFIER: None Dictated by: Dictated on workstation # [id number]
== END ==
LOC: RAD 11:29
PROVIDERS: ATTEND Nurse Practitioner Family
DX: Z12.2 Encounter for screening for malignant neoplasm of respiratory organs (principal); J44.9 Chronic obstructive pulmonary disease, unspecified; Z87.891 Personal history of nicotine dependence
CPT/HCPCS: 71271

== ENCOUNTER 2022-12-18 21:34 | Emergency (ER) | payer MEDICARE ==
[~2022-12-18] VITALS: Ht 175.2 cm; Wt 123.6 kg
[~2022-12-18 21:34] MED LIST changes: +ALBU8.5H6 IH; +METAMUCIL0.52 GM PO; -PSYL0.5211 PO; -RT-ALBUINH IH
[2022-12-18] MEDS ORDERED: ACETAMINOPHEN 500 MG TAB (TYLENOL) PO ONE (21:45)
[2022-12-18] MEDS ORDERED: diphenhydrAMINE 50 MG/ML INJ (BENADRYL) IVP ONE (21:45)
[2022-12-18] MEDS ORDERED: PROCHLORPERAZINE 10 MG/2ML INJ (COMPAZINE) IV ONE (21:45)
[2022-12-18] MEDS ORDERED: RT-ALBUTEROL/IPRATROPIUM 3 ML (DUONEB) VIAL INH ONE (21:45)
--- NOTE | 2022-12-18 21:48 | ED Headache ---
General Chief Complaint: Head/Cervical Problems Stated Complaint: SYNCOPE,JAW PAIN,L ARM PAIN,HEADACHE Source: patient Exam Limitations: no limitations History of Present Illness Date Seen by Provider: Dec 18, 2022 Time Seen by Provider: 21:36 Initial Comments 62-year-old male with past medical history of COPD, chronic hypoxic respiratory failure on 2 L O2, diabetes, hypertension coming in due to numerous issues. Most notably, he has a headache, worsening today, radiates down his neck and left shoulder. He is also has felt more short of breath the past week, is unsure if it is his COPD related discomfort. He was standing up earlier, had a syncopal episode, did not fully fall to the ground. Denies any chest pain, abdominal pain, nausea, vomiting, diarrhea, weakness, numbness, vision changes, fever, or any other concerns Allergies and Home Medications Allergies Coded Allergies: No Known Drug Allergies (Unverified , 10/06/18) Patient Home Medication List Home Medication List Reviewed: Yes Albuterol Sulfate (Ventolin Hfa) 1 Puff Puff, 2 PUFF IH Q4H PRN for SHORTNESS OF BREATH, (Reported) Entered as Reported by: JERRY BENITEZ on 01/18/21 1323 Ascorbate Calcium (Vitamin C) 500 Mg Tablet, 500 MG PO DAILY, (Reported) Entered as Reported by: JERRY BENITEZ on 01/18/21 1323 Aspirin (Aspirin) 81 Mg Tab.chew, 81 MG PO DAILY, (Reported) Entered as Reported by: JERRY BENITEZ on 01/18/21 1323 Budesonide/Formoterol Fumarate (Symbicort 160-4.5 Mcg Inhaler) 10.2 Gm Hfa.aer.ad, 2 PUFF IH BID, (Reported) Entered as Reported by: JERRY BENITEZ on 01/18/21 1323 Folic Acid/Multivit-Minerals (Men's Multivitamin Gummies) 200 Mcg Tab.chew, 400 MCG PO DAILY, (Reported) Entered as Reported by: SUMI LOCKWOOD on 07/26/21 1605 Gabapentin (Gabapentin) 100 Mg Capsule, 100 MG PO HS, (Reported) Entered as Reported by: JERRY BENITEZ on 01/18/21 1323 Ibuprofen (Ibuprofen) 200 Mg Tablet, 400 MG PO HS, (Reported) Entered as Reported by: GALINA RUBIO on 07/25/21 1057 Lactobacillus Acidophilus (Probiotic Acidophilus) 1 Each Tablet, 1 EACH PO DAILY, (Reported) Entered as Reported by: SUMI LOCKWOOD on 07/26/21 1605 Levalbuterol HCl (Levalbuterol HCl) 0.63 Mg/3 Ml Vial.neb, 0.63 MG IH Q4H PRN for SHORTNESS OF BREATH, (Reported) Entered as Reported by: JERRY BENITEZ on 01/18/21 1323 Methylcellulose (Fiber) 500 Mg Tablet, 500 MG PO UD PRN for USE WITH DAIRY PRODUCTS, (Reported) Entered as Reported by: SUMI LOCKWOOD on 07/26/21 1605 Mv-Mn/Vitc/Asbna/Glu/Marine/Hc124 (Airborne Gummies) 1 Each Tab.chew, 1 EACH PO DAILY, (Reported) Entered as Reported by: SUMI LOCKWOOD on 07/26/21 1605 Briggs 3 Polyunsat Fatty Acids (Fish Oil 1,000 mg Capsule) 1,000 Mg Cap, 1,000 MG PO DAILY, (Reported) Entered as Reported by: JERRY BENITEZ on 04/21/19 1316 Tiotropium [place] (Spiriva) 1 Inh Aerp, 1 INH IH DAILY, (Reported) Entered as Reported by: JERRY BENITEZ on 01/18/21 1323 Zinc/Ascorbic Acid/Pyridoxine (Zinc-Vitamin C-B6 Lozenge) 1 Each Lozenge, 1 EACH PO DAILY, (Reported) Entered as Reported by: SUMI LOCKWOOD on 07/26/21 1605 Review of Systems Review of Systems Constitutional: No fever Eyes: No Symptoms Reported Ears, Nose, Mouth, Throat: no symptoms reported Respiratory: see HPI Cardiovascular: no symptoms reported Gastrointestinal: no symptoms reported Genitourinary: no symptoms reported Musculoskeletal: no symptoms reported Skin: no symptoms reported Psychiatric/Neurological: See HPI Past Gvqtaxq-Vvfpwr-Mkusbo Hx Patient Social History Tobacco Use?: No Smoking Status: Former Smoker Immunizations Up To Date First/Initial COVID19 Vaccinat: IST OF OCTOBER 2020 Second COVID19 Vaccination Caleb: END OF OCTOBER 2020 Third COVID19 Vaccination Date: IST October 2020 Seasonal Allergies Seasonal Allergies: Yes Past Medical History Surgery/Hospitalization HX: LEFT TOTAL KNEE REPLACEMENT JAN 2021, L KNEE SURGERY APR 2021 Surgeries: Yes (bilat ing hernia sx, lipoma removed, umb hernia during lap candice, knee scop) Gallbladder, Vasectomy Respiratory: Yes Sleep Apnea, COPD, Emphysema Currently Using CPAP: No Currently Using BIPAP: No Cardiac: No Neurological: Yes Neuropathy Genitourinary: No Gastrointestinal: Yes Chronic Constipation Musculoskeletal: Yes (left patella recurrent subluxation) Arthritis Endocrine: No HEENT: No Cancer: No Psychosocial: No Integumentary: No Blood Disorders: No Family Medical History No Pertinent Family Hx Physical Exam Vital Signs Vital Signs - First Documented 12/18/22 21:49 Pulse Ox 97 O2 Delivery Nasal Cannula O2 Flow Rate 2.00 Capillary Refill : Height, Weight, BMI Height: '" Weight: lbs. oz. kg; BMI Method: General Appearance: WD/WN, no apparent distress HEENT: PERRL/EOMI, normal ENT inspection, pharynx normal Neck: non-tender, full range of motion, supple, normal inspection, other (No meningismus) Cardiovascular: regular rate, rhythm, no edema Respiratory: chest non-tender, no respiratory distress, no accessory muscle use Gastrointestinal: normal bowel sounds, non tender, soft; No distended, No guarding, No rebound Back: normal inspection, no CVA tenderness Extremities: normal range of motion, non-tender, normal inspection, no pedal edema, no calf tenderness, normal capillary refill Psychiatric: alert, oriented x 3 Crainal Nerves: normal hearing, normal speech, PERRL Coordination/Gait: normal finger to nose, normal gait Motor/Sensory: no motor deficit, no sensory deficit, no pronator drift Skin: normal color, warm/dry Progress/Results/Core Measures Results/Orders Lab Results Laboratory Tests Test 12/18/22 21:48 Range/Units White Blood Count 9.5 4.3-11.0 10^3/uL Red Blood Count 4.42 4.30-5.52 10^6/uL Hemoglobin 13.7 13.3-17.7 g/dL Hematocrit 41 40-54 % Mean Corpuscular Volume 92 80-99 fL Mean Corpuscular Hemoglobin 31 25-34 pg Mean Corpuscular Hemoglobin Concent 34 32-36 g/dL Red Cell Distribution Width 13.3 10.0-14.5 % Platelet Count 227 130-400 10^3/uL Mean Platelet Volume 9.7 9.0-12.2 fL Immature Granulocyte % (Auto) 0 % Neutrophils (%) (Auto) 59 42-75 % Lymphocytes (%) (Auto) 29 12-44 % Monocytes (%) (Auto) 7 0-12 % Eosinophils (%) (Auto) 4 0-10 % Basophils (%) (Auto) 1 0-10 % Neutrophils # (Auto) 5.7 1.8-7.8 10^3/uL Lymphocytes # (Auto) 2.7 1.0-4.0 10^3/uL Monocytes # (Auto) 0.7 0.0-1.0 10^3/uL Eosinophils # (Auto) 0.3 0.0-0.3 10^3/uL Basophils # (Auto) 0.1 0.0-0.1 10^3/uL Immature Granulocyte # (Auto) 0.0 0.0-0.1 10^3/uL Prothrombin Time 12.7 12.2-14.7 SEC INR Comment 0.9 0.8-1.4 Activated Partial Thromboplast Time 29 24-35 SEC Sodium Level 143 135-145 MMOL/L Potassium Level 4.0 3.6-5.0 MMOL/L Chloride Level 106 98-107 MMOL/L Carbon Dioxide Level 27 21-32 MMOL/L Anion Gap 10 5-14 MMOL/L Blood Urea Nitrogen 15 7-18 MG/DL Creatinine 0.71 0.60-1.30 MG/DL Estimat Glomerular Filtration Rate 105 BUN/Creatinine Ratio 21 Glucose Level 145 H 70-105 MG/DL Calcium Level 9.6 8.5-10.1 MG/DL Corrected Calcium 9.7 8.5-10.1 MG/DL Magnesium Level 2.0 1.6-2.4 MG/DL Total Bilirubin 0.5 0.1-1.0 MG/DL Aspartate Amino Transf (AST/SGOT) 14 5-34 U/L Alanine Aminotransferase (ALT/SGPT) 15 0-55 U/L Alkaline Phosphatase 68 40-136 U/L Troponin I < 0.30 <0.30 NG/ML Pro-B-Type Natriuretic Peptide 128.7 H <125.0 PG/ML Total Protein 6.7 6.4-8.2 GM/DL Albumin 3.9 3.2-4.5 GM/DL My Orders Orders - ADRIANA CHANEL MD Cbc With Automated Diff (12/18/22 21:43) Magnesium (12/18/22 21:43) Chest 1 View Ap/Pa Only (12/18/22 21:43) Ekg Tracing (12/18/22 21:43) Comprehensive Metabolic Panel (12/18/22 21:43) Protime With Inr (12/18/22 21:43) Partial Thromboplastin Time (12/18/22 21:43) O2 (12/18/22 21:43) Monitor-Rhythm Ecg Trace Only (12/18/22 21:43) Ed Iv/Invasive Line Start (12/18/22 21:43) Troponin I Fs (12/18/22 21:43) Probnp Fs (12/18/22 21:43) Ct Head Wo (12/18/22 21:43) Prochlorperazine Injection (Compazine In (12/18/22 21:45) Diphenhydramine Injection (Benadryl Inje (12/18/22 21:45) Acetaminophen Tablet (Tylenol Tablet) (12/18/22 21:45) Albuterol/Ipra Inhalation Soln (Duoneb I (12/18/22 21:45) Medications Given in ED Current Medications Medications Dose Ordered Sig/Segun Route Start Time Stop Time Status Last Admin Dose Admin Acetaminophen 1,000 mg ONCE ONCE PO 12/18/22 21:45 12/18/22 21:46 DC 12/18/22 21:49 1,000 MG Albuterol/ Ipratropium 3 ml ONCE ONCE INH 12/18/22 21:45 12/18/22 21:46 DC 12/18/22 21:49 3 ML Diphenhydramine HCl 25 mg ONCE ONCE IVP 12/18/22 21:45 12/18/22 21:46 DC 12/18/22 21:48 25 MG Prochlorperazine Edisylate 10 mg ONCE ONCE IV 12/18/22 21:45 12/18/22 21:46 DC 12/18/22 21:49 10 MG Vital Signs/I&O 12/18/22 21:49 Pulse Ox 97 O2 Delivery Nasal Cannula O2 Flow Rate 2.00 Progress Progress Note : Progress Note 62-year-old male with above history coming in due to numerous issues, most notably headache and shortness of breath. ABCs were intact and vitals were stable on presentation on his baseline oxygen. EKG ordered and interpreted by me showing no acute ischemic changes. An IV is placed and basic labs were obtained including cardiac biomarkers given his shortness of breath. Troponin was negative, unlikely to be an ACS equivalent. Chest x-ray ordered and interpreted by me showing no pneumothorax, no opacities and a normal cardiac silhouette. He was given a DuoNeb and did feel slightly better in terms of his shortness of breath. He does have fairly advanced COPD. We will send a prescription for steroids as well as an antibiotic. Basic labs significant for normal white blood count, normal creatinine, negative troponin as mentioned. Patient received medications for his headache, it went away and was completely. He has no meningismus, no fever, unlikely to be meningitis. CT head ordered and interpreted by me showing no obvious hemorrhage or large mass in his brain. I think he is otherwise stable for discharge with outpatient follow-up. He was sent home with strict return precautions Initial ECG Impression Date: Dec 18, 2022 Initial ECG Impression Time: 21:42 Initial ECG Rate: 79 Initial ECG Rhythm: Normal Sinus Comment Narrow QRS, normal axis, no STEMI, no significant T wave abnormality Diagnostic Imaging Diagonstic Imaging: Xray (chest), CT (head) Comments [facility] [place], [place] NAME: AMERICA RAMIREZ [facility] REC#: [id number] PT STATUS: REG ER : 1960 PHYSICIAN: ADRIANA CHANEL MD ADMIT DATE: 12/18/22/ER FS Signed Date of Exam:12/18/22 CHEST 1 VIEW AP/PA ONLY INDICATION: Shortness of breath Frontal chest obtained at 09:42 p.m. Heart and mediastinal silhouette are normal in appearance. The lungs show no focal infiltrate. The is mild linear scarring in the left base. There is no pneumothorax or pleural fluid. IMPRESSION: No acute process in the chest. Dictated by: Dictated on workstation # [id number] Dict: [id number] Trans: 12/18/222203 [facility] [id number] Interpreted by: LIZET HAZEL MD Electronically signed by: LIZET HAZEL MD 12/18/224 Departure Impression Primary Impression: Headache Qualified Codes: G44.209 - Tension-type headache, unspecified, not intractable Additional Impression: COPD exacerbation Disposition: HOME, SELF-CARE Condition: Improved Departure-Patient Inst. Referrals: [facility] [place] (PCP) Primary Care Physician MADINA PORTER APRN (Family) Primary Care Physician Patient Instructions: Headache, Adult ED Add. Discharge Instructions: Try to take ibuprofen or Tylenol as needed for the headache at home. Antibiotics and steroids were sent to your pharmacy for your COPD as well with your increasing shortness of breath. Scripts Methylprednisolone (Methylprednisolone Dose Pack) 4 Mg Tab.ds.pk 4 MG PO UD for 6 Days, #21 PKG PER DOSE PACK INSTRUCTIONS Prov: ADRIANA CHANEL MD 12/18/22 Doxycycline Hyclate (Doxycycline Hyclate) 100 Mg Tablet 100 MG PO BID for 5 Days, #10 TAB 0 Refills Prov: ADRIANA CHANEL MD 12/18/22 Work/School Note: Family Work Note, Patient Received Medical Care In the Emergency Department On: Dec 18, 2022 Patient Will Be Able to Return to Work/School On: Dec 20, 2022 Work Release Form Date Seen in the Emergency Department: Dec 18, 2022 Return to Work: Dec 20, 2022 Restrictions: No Restrictions ADRIANA CHANEL MD Dec 18, 2022 21:48
[2022-12-18 21:51] LABS: BASOPHILS # (AUTO) 0.1 10^3/uL (0.0-0.1); BASOPHILS % (AUTO) 1 % (0-10); EOSINOPHILS # (AUTO) 0.3 10^3/uL (0.0-0.3); EOSINOPHILS % (AUTO) 4 % (0-10); HEMATOCRIT 41 % (40-54); HEMOGLOBIN 13.7 g/dL (13.3-17.7); LYMPHOCYTES # (AUTO) 2.7 10^3/uL (1.0-4.0); LYMPHOCYTES % (AUTO) 29 % (12-44); MEAN CORPUSCULAR HEMOGLOBIN 31 pg (25-34); MEAN CORPUSCULAR HGB CONC 34 g/dL (32-36); MEAN CORPUSCULAR VOLUME 92 fL (80-99); MEAN PLATELET VOLUME 9.7 fL (9.0-12.2); MONOCYTES # (AUTO) 0.7 10^3/uL (0.0-1.0); MONOCYTES % (AUTO) 7 % (0-12); NEUTROPHILS # (AUTO) 5.7 10^3/uL (1.8-7.8); NEUTROPHILS % (AUTO) 59 % (42-75); PLATELET COUNT 227 10^3/uL (130-400); WHITE BLOOD COUNT 9.5 10^3/uL (4.3-11.0)
--- NOTE | 2022-12-18 21:59 | Diagnostic Imaging Report ---
INDICATION: Shortness of breath Frontal chest obtained at 09:42 p.m. Heart and mediastinal silhouette are normal in appearance. The lungs show no focal infiltrate. The is mild linear scarring in the left base. There is no pneumothorax or pleural fluid. IMPRESSION: No acute process in the chest. Dictated by: Dictated on workstation # [id number]
[2022-12-18 22:07] LABS: INR 0.9 (0.8-1.4); PROTHROMBIN TIME PATIENT 12.7 SEC (12.2-14.7)
[2022-12-18 22:24] LABS: CARBON DIOXIDE 27 MMOL/L (21-32); CHLORIDE 106 MMOL/L (98-107); SODIUM 143 MMOL/L (135-145)
[2022-12-18 22:25] LABS: ALANINE AMINOTRANSFERASE 15 U/L (0-55); ALBUMIN 3.9 GM/DL (3.2-4.5); ALKALINE PHOSPHATASE 68 U/L (40-136); BILIRUBIN,TOTAL 0.5 MG/DL (0.1-1.0); BUN/CREATININE RATIO 21; CALCIUM 9.6 MG/DL (8.5-10.1); CREATININE SERUM 0.71 MG/DL (0.60-1.30); GFR ESTIMATED 105; GLUCOSE 145 MG/DL (70-105); TOTAL PROTEIN 6.7 GM/DL (6.4-8.2)
[2022-12-18] MEDS ORDERED: METH4TAB10 PO (22:39)
[2022-12-18] MEDS ORDERED: DOXY100T2 PO (22:39)
[2022-12-18 23:20] VITALS: BP 141/83
--- NOTE | 2022-12-19 06:40 | Diagnostic Imaging Report ---
CLINICAL INDICATION: Patient with headache with syncope. Exam: Axial CT scan of the brain without IV contrast with coronal and sagittal reformatted images. Auto Exposure Controls were utilized during the CT exam to meet ALARA standards for radiation dose reduction. Comparison: None Findings: There is no evidence of acute cerebral infarct, intracranial hemorrhage, or gross mass effect. There is brain parenchymal volume loss with the frontal lobes affected the most. There is normal sanchez-white matter distinction. There is no significant midline shift or herniation. There is no evidence of hydrocephalus. The basal cisterns are unremarkable. The skull, extracranial soft tissue, and orbits are unremarkable. The paranasal sinuses are unremarkable. Temporal bones show no significant abnormality. Impression: There is no CT evidence of acute intracranial process. I agree with [facility] report. Dictated by: Dictated on workstation # [id number]
== END 2022-12-18 23:20 | disposition home or self-care (01) ==
LOC: EDUNIT# 21:34 → ER FS 21:35
DX: R51.9 Headache, unspecified (principal); J43.9 Emphysema, unspecified; J96.11 Chronic respiratory failure with hypoxia; Z99.81 Dependence on supplemental oxygen; Z87.891 Personal history of nicotine dependence
CPT/HCPCS: 36415; 70450; 71045; 80053; 83735; 83880; 84484; 85025; 85610; 85730; 93005; 93041; 94640

== ENCOUNTER → 2022-12-21 | Outpatient (CLI) | payer MEDICARE ==
[~2022-12-21] MED LIST changes: +DOXY100T2 PO; +METH4TAB10 PO
== END ==
LOC: LAB FS 14:03
PROVIDERS: ATTEND Urology
DX: Z12.5 Encounter for screening for malignant neoplasm of prostate (principal)
CPT/HCPCS: 36415; 84153